=== PATIENT | male | born 1945 | race Caucasian/White ===

== ENCOUNTER 2019-12-15 12:50 | Outpatient (CLI) | payer MEDICARE, SELFPAY ==
[2019-12-15 13:47] LABS: Basophils % 0.2 %; Eosinophils # 0.2 10^3/uL (0.0-0.8); Hematocrit 43.6 % (42.0-52.0); Hemoglobin 14.4 g/dL (11.7-16.6); Lymphocytes # 2.6 10^3/uL (0.8-4.8); Lymphocytes % 31.6 %; Mean Corpuscular Hemoglobin 30.8 pg (28.0-34.0); Mean Corpuscular Volume 93.4 fL (80-94); Mean Platelet Volume 10.4 fL (7.4-10.4); Monocytes # 0.6 10^3/uL (0.2-0.9); Monocytes % 7.8 %; Neutrophils # 4.7 10^3/uL (1.8-7.7); Neutrophils % 57.5 %; Nucleated Red Blood Cells % 0 %; Platelet Count 160 10^3/cmm (130-400); Red Blood Count 4.67 10^6/uL (4.1-5.3); Red Cell Distribution Width 12.5 % (12.1-15.1); White Blood Count 8.2 10^3/uL (4.0-10.0)
[2019-12-15 14:10] LABS: Alanine Aminotransferase 22 U/L (0-41); Albumin Level 4.1 g/dL (3.5-5.2); Alkaline Phosphatase 80 IU/L (40-130); Anion Gap 16.8 (5-19); Aspartate Amino Transferase 18 U/L (0-40); Blood Urea Nitrogen 19 mg/dL (8-23); Calcium 10.1 mg/Dl (8.8-10.2); Carbon Dioxide 28 mmol/L (22-29); Chloride 100 mmol/L (98-107); Globulin 2.6 g/dL (1.3-4.6); Glucose 96 mg/dL (74-106); Potassium 3.8 mmol/L (3.5-5.1); Sodium 141 mmol/L (136-145); Total Bilirubin 0.3 mg/dL (0.15-1.2); Total Protein 6.7 g/dL (6.6-8.7)
[2019-12-15 14:44] LABS: Estmated Average Glucose 214; Hemoglobin A1C 9.1 % (4.0-6.0)
--- NOTE | 2019-12-15 20:13 | ONC FU_ITS ---
Dr. Valles Patient Follow-Up Note Patient: Andrae Montemayor Unit #: [id number]: 1945 Dicatated By: Kevan Valles M.D.Date of Visit:Dec 15, 2019 Onc Med Follow-up/Prog Note Chief Complaint: Grade III astrocytoma. 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 He was admitted to the hospital in July 2014 with an acute neurologic event, initially suspected to be a stroke. However, a noncontrast CT showed significant cerebral edema, and subsequent brain MRI showed a small enhancing lesion in the left superior frontal lobe subcortical white matter. It measured 7 mm x 10 mm x 6 mm, but it did have more extensive, ill defined cortical and subcortical edema and more diffuse intermediate increased T2 signal throughout the bilateral cerebral white matter, including involvement of the corpus colostrum body and medial cerebellum hemispheres. The appearance was consistent with tumoral extension or vasogenic edema. There was a 5 mm [id number] shift with diffuse cerebral sulci effacement. There was no associated infarction or hemorrhage. The appearance was suspicious for primary SAMPLE GR[employer]ER glioma or lymphoma. He underwent stereotactic brain biopsy on 08/17/14. Pathology was consistent with grade 3 astrocytoma. Patient and family had initially indicated that they were not interested in pursuing treatment, but he later was seen by Dr. Saenz, and he did opt to undergo treatment with radiation concurrently with temozolomide chemotherapy. Radiation was completed on 11/15/14 to a total dose of 4600 cGy. The temozolomide was stopped during the final week of treatment due to a drop in the platelet count. He otherwise tolerated the treatment very well. He had a restaging MRI in November 2014. It showed a significant decrease in the left superior frontal lobe enhancing lesions and the associated edema. There was also improvement in the left to right midline shift. There was still evidence of diffuse cerebral and cerebellar periventricular white matter high T2/FLAIR signal, possibly due to tumoral edema or chronic small ischemic changes. These appeared unchanged from the previous study. He then continued treatment with monthly cycles of temozolomide. As of May 2015 he had completed 6 cycles of treatment. He has since then been followed on observation. He was seen for a scheduled followup visit on 03/27/2016. At that time, his noted that he was getting more irritable and somewhat hyperactive. I was uncertain where those changes may have been related to dexamethasone as opposed to progression of the malignancy. He had repeat brain MRI on 04/18/2016. In compared to the previous study from May 2015 it did show slight enlargement of the left frontal lobe mass, measuring 12.2 mm x 13.0 mm x 9.2 mm compared to 7.2 mm x 6.6 mm x 9.8 mm in May 2015. There was evidence of decreased right temporal lobe white matter edema. Bilateral periventricular and bilateral frontal mike radiata and centrum semi-ovale white matter high T2/FLAIR signal abnormality appeared stable. He was not interested in pursuing options for further treatment at a tertiary facility. As such, I had recommended that he just continue on the dexamethasone 4 mg daily. His other medical illnesses include hypertension and type 2 diabetes. He had smoked in the past, but he quit more than 40 years ago. INTERIM HISTORY: He is seen for a scheduled visit. He has been feeling pretty good generally. He does have some fatigue, but he remains active, and he is able to do light work. He has good appetite. He has no fever or night sweats. He has some shortness of breath when he is tired. He had a cold about a week ago, his cough is getting better. He has not been having chest pain. He has no GI complaints. He has urinary frequency and urgency. He generally is controlling his bladder pretty well. He has no significant joint or bone pain. He says he gets a headache when he first wakes up in the morning, but it goes away when he drinks coffee. He has dizziness if he throws his head back. He has some numbness in both feet. He has no other focal neurologic symptoms. Medications: Dexamethasone 1 Tablet (of 4 mg) Oral at bedtime, GlipiZIDE 1 Tablet (of 10 mg) Oral b.i.d., Levemir 30 (100 Units/mL) Subcutaneous at bedtime, MetFORMIN HCl 1 Tablet (of 1000 mg) Oral b.i.d., Phenytoin Sodium Extended 3 Capsule (of 100 mg) Oral at bedtime Allergies: No Known Allergies. Review of Systems: Constitutional - He has some fatigue, but he is able to do light work. Appetite is good. He has no fever or night sweats. ECOG score is 1, ENMT - His sinus drainage has been better lately. No mouth sores. No sore throat or difficulty swallowing, Hematologic/Lymphatic - No abnormal bruising or bleeding, Respiratory - He has some shortness of breath when he is tired. He had a cold about a week ago. His cough now is getting better. No pleuritic pain or hemoptysis, Cardiovascular - No angina pain. No palpitations, Gastrointestinal - No nausea or vomiting. He has had just one recent episode of heartburn. No diarrhea or constipation. No blood in the stool or black stools, Genitourinary (M) - No dysuria or hematuria. He has urinary frequency and urgency, but he is generally controlling his bladder better, Musculoskeletal - No significant joint or bone pain, Integumentary - No skin complications, Neurologic - He has headache when he wakes up in the morning, but it goes away when he drinks coffee. He has dizziness if he throws his head back. He has some numbness in his feet. He has no other focal neurologic symptoms, Psychiatric - No anxiety or depression. No insomnia. Vital Signs: Performed on Dec 15, 2019 15:35 Height - 68.00 in Weight - 200.8 lbs BSA - 2.05 sq.m BMI - 30.53 (HIGH) Temperature - 97.8 F (LOW) Pulse - 75 /min Respiration - 24 /min BP - 148/80 mm(hg) (HIGH) O2 Sat - 96 % Pain - 0 Physical Examination: Constitutional - He looks pretty good generally, Eyes - He has a prosthetic left eye. There is no scleral icterus. Conjunctiva appears clear, ENMT - There are no lesions noted in the oral cavity, Hematologic/Lymphatic - No cervical, clavicular, or axillary adenopathy, Respiratory - Lungs show slightly coarse breath sounds bilaterally. There are scattered rales, more prominent on the left, Cardiovascular - Heart rhythm is regular. There is no murmur, gallop, or rub noted, Abdomen - Moderately distended. Liver and spleen are not enlarged. There is no abdominal mass or ascites noted and there is no inguinal adenopathy, Extremities - No edema, Neurologic - There are no focal neurologic deficits noted. Lab/Imaging: Test performed on Dec 15, 2019 13:28 Sodium 141 mmol/L Potassium 3.8 mmol/L Chloride 100 mmol/L CO2 28 mmol/L Anion Gap 16.8 BUN 19 mg/dL Creatinine 1.0 mg/dL Cr Clearance (Est) 82.2300 mL/min Glucose 96 mg/dL Calcium 10.1 mg/Dl Protein, Total 6.7 g/dL Albumin 4.1 g/dL Globulin 2.6 g/dL Bilirubin, Total 0.3 mg/dL ALT (SGPT) 22 U/L AST (SGOT) 18 U/L Hemoglobin A1C % 9.1 % WBC 8.2 10 3/uL RBC 4.67 10 6/uL HGB 14.4 g/dL HCT 43.6 % MCV 93.4 fL MCH 30.8 pg MCHC 33.0 g/dL RDW 12.5 % Platelet Count 160 10 3/cmm MPV 10.4 fL Neutrophils 4.7 10 3/uL Lymphocytes 2.6 10 3/uL Monocytes 0.6 10 3/uL Eosinophils 0.2 10 3/uL Basophils 0.0 10 3/uL Neutrophil % 57.5 % Lymphocyte % 31.6 % Monocyte % 7.8 % Eosinophil % 2.0 % Basophils % 0.2 % Impression: 1. 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 The tumor appeared small by MRI, but the surrounding changes were much more extensive, and it was felt that his tumor was locally advanced. 2. He underwent treatment with radiation concurrently with temozolomide chemotherapy. Radiation was completed on 11/15/14 to a total dose of 4600 cGy. Temozolomide was stopped during the final week of radiation due to a declining platelet count. He otherwise tolerated the treatment well. 3. He did show significant clinical improvement with the treatment, and restaging MRI in November 2014 showed evidence of some response. He then continued treatment with monthly cycles of temozolomide. As of May 2015 he had completed 6 cycles of treatment. He did show some decline in his platelet count during the last two cycles, but he tolerated the chemotherapy well otherwise. Repeat MRI on 06/23/2015 showed no evidence of disease progression. 4. During followup he has remained dependent on a low dosage of dexamethasone, but he has remained stable clinically. Repeat brain MRI on 04/18/2016 showed slight enlargement of the left frontal lobe intra-axial mass, presumably indicative of disease progression. Other findings were improved or stable. He had indicated that he was not interested in pursuing further treatment at a tertiary facility. As such, he has continued observation/symptomatic management. His other medical illnesses include: 5. Hypertension. 6. Hyperlipidemia. 7. Type II diabetes. 8. Hypothyroidism. During follow-up he has continued to do remarkably well on a low dose of dexamethasone. He has diabetes has not been controlled very well due to compliance issues, but his hemoglobin A1c has at least stabilized since we got him started on treatment with Levemir. His overall clinical status remains stable with no obvious progression of the astrocytoma. Plan: He will continue dexamethasone at 4 mg daily. His Levemir dosage will be increased to 30 units daily. I will see him again in 3 months, or sooner as needed. Signed By: Kevan Valles M.D. <<Signature on File>>
== END 2019-12-15 12:51 | disposition home or self-care (01) ==
LOC: ONCMED 12:57
PROVIDERS: PCP Nurse Practitioner; Visit Provider Internal Medicine Medical Oncology
DX: C71.1 Malignant neoplasm of frontal lobe (principal); E11.9 Type 2 diabetes mellitus without complications; I10 Essential (primary) hypertension; E78.5 Hyperlipidemia, unspecified; E03.9 Hypothyroidism, unspecified; Z79.899 Other long term (current) drug therapy; Z79.84 Long term (current) use of oral hypoglycemic drugs; Z79.52 Long term (current) use of systemic steroids; Z92.3 Personal history of irradiation; Z92.21 Personal history of antineoplastic chemotherapy
CPT/HCPCS: 36415; 80053; 83036; 85025; 99214

== ENCOUNTER 2020-03-16 14:30 | Outpatient (CLI) | payer MEDICARE, SELFPAY ==
[2020-03-16 17:02] LABS: Basophils % 0.4 %; Eosinophils # 0.1 10^3/uL (0.0-0.8); Eosinophils % 1.4 %; Hematocrit 44.4 % (42.0-52.0); Hemoglobin 14.5 g/dL (11.7-16.6); Lymphocytes # 2.4 10^3/uL (0.8-4.8); Lymphocytes % 28.6 %; Mean Corpuscular HGB Conc 32.7 g/dL (30.0-36.0); Mean Corpuscular Hemoglobin 30.7 pg (28.0-34.0); Mean Corpuscular Volume 93.9 fL (80-94); Mean Platelet Volume 11.7 fL (7.4-10.4); Monocytes # 0.7 10^3/uL (0.2-0.9); Monocytes % 8.7 %; Neutrophils # 5.1 10^3/uL (1.8-7.7); Neutrophils % 60.1 %; Nucleated Red Blood Cells % 0 %; Platelet Count 153 10^3/cmm (130-400); Red Blood Count 4.73 10^6/uL (4.1-5.3); Red Cell Distribution Width 12.9 % (12.1-15.1); White Blood Count 8.4 10^3/uL (4.0-10.0)
[2020-03-16 17:47] LABS: Estmated Average Glucose 220; Hemoglobin A1C 9.3 % (4.0-6.0)
== END 2020-03-16 14:31 | disposition home or self-care (01) ==
LOC: ONCMED 16:23
PROVIDERS: PCP Nurse Practitioner; Visit Provider Internal Medicine Medical Oncology
DX: C71.1 Malignant neoplasm of frontal lobe (principal); E11.9 Type 2 diabetes mellitus without complications
CPT/HCPCS: 36415; 83036; 85025

== ENCOUNTER 2020-03-17 06:51 | Outpatient (CLI) | payer MEDICARE, SELFPAY ==
--- NOTE | 2020-03-17 14:11 | ONC FU_ITS ---
Dr. Valles Patient Follow-Up Note Patient: Andrae Montemayor Unit #: [id number]: 1945 Dicatated By: Kevan Valles M.D.Date of Visit:Mar 17, 2020 Onc Med Follow-up/Prog Note Chief Complaint: Grade III astrocytoma. 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 He was admitted to the hospital in July 2014 with an acute neurologic event, initially suspected to be a stroke. However, a noncontrast CT showed significant cerebral edema, and subsequent brain MRI showed a small enhancing lesion in the left superior frontal lobe subcortical white matter. It measured 7 mm x 10 mm x 6 mm, but it did have more extensive, ill defined cortical and subcortical edema and more diffuse intermediate increased T2 signal throughout the bilateral cerebral white matter, including involvement of the corpus colostrum body and medial cerebellum hemispheres. The appearance was consistent with tumoral extension or vasogenic edema. There was a 5 mm [id number] shift with diffuse cerebral sulci effacement. There was no associated infarction or hemorrhage. The appearance was suspicious for primary [employer] glioma or lymphoma. He underwent stereotactic brain biopsy on 08/17/14. Pathology was consistent with grade 3 astrocytoma. Patient and family had initially indicated that they were not interested in pursuing treatment, but he later was seen by Dr. Saenz, and he did opt to undergo treatment with radiation concurrently with temozolomide chemotherapy. Radiation was completed on 11/15/14 to a total dose of 4600 cGy. The temozolomide was stopped during the final week of treatment due to a drop in the platelet count. He otherwise tolerated the treatment very well. He had a restaging MRI in November 2014. It showed a significant decrease in the left superior frontal lobe enhancing lesions and the associated edema. There was also improvement in the left to right midline shift. There was still evidence of diffuse cerebral and cerebellar periventricular white matter high T2/FLAIR signal, possibly due to tumoral edema or chronic small ischemic changes. These appeared unchanged from the previous study. He then continued treatment with monthly cycles of temozolomide. As of May 2015 he had completed 6 cycles of treatment. He has since then been followed on observation. He was seen for a scheduled followup visit on 03/27/2016. At that time, his noted that he was getting more irritable and somewhat hyperactive. I was uncertain where those changes may have been related to dexamethasone as opposed to progression of the malignancy. He had repeat brain MRI on 04/18/2016. In compared to the previous study from May 2015 it did show slight enlargement of the left frontal lobe mass, measuring 12.2 mm x 13.0 mm x 9.2 mm compared to 7.2 mm x 6.6 mm x 9.8 mm in May 2015. There was evidence of decreased right temporal lobe white matter edema. Bilateral periventricular and bilateral frontal mike radiata and centrum semi-ovale white matter high T2/FLAIR signal abnormality appeared stable. He was not interested in pursuing options for further treatment at a tertiary facility. As such, I had recommended that he just continue on the dexamethasone 4 mg daily. His other medical illnesses include hypertension and type 2 diabetes. He had smoked in the past, but he quit more than 40 years ago. INTERIM HISTORY: I had visited with him today by telephone. He says he is feeling all right. He is doing work around the house. He sometimes gets weak, but he recovers quickly if he just sits down and rests. ECOG score is 1. He has good appetite. He does not have fever or night sweats. He has not had sore mouth or throat. He has some shortness of breath with activity. He was having cough, but it is about gone now. He does not complain of chest pain. He has no GI complaints. Bladder function has been pretty good. He sometimes has pain in his legs which goes down to his toes. He gets lightheaded if he throws his head back. He also has some orthostatic dysequilibrium. He does not complain of headache, and he has no focal neurologic symptoms. Medications: Dexamethasone 1 Tablet (of 4 mg) Oral at bedtime, GlipiZIDE 1 Tablet (of 10 mg) Oral b.i.d., Levemir 30 (100 Units/mL) Subcutaneous at bedtime, MetFORMIN HCl 1 Tablet (of 1000 mg) Oral b.i.d., Phenytoin Sodium Extended 3 Capsule (of 100 mg) Oral at bedtime Allergies: No Known Allergies. Lab/Imaging: CBC shows hemoglobin 14.5 g, white blood cell count 8400, and platelet count 153,000. Hemoglobin A1c is stable at 9.3%. Impression: 1. 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 The tumor appeared small by MRI, but the surrounding changes were much more extensive, and it was felt that his tumor was locally advanced. 2. He underwent treatment with radiation concurrently with temozolomide chemotherapy. Radiation was completed on 11/15/14 to a total dose of 4600 cGy. Temozolomide was stopped during the final week of radiation due to a declining platelet count. He otherwise tolerated the treatment well. 3. He did show significant clinical improvement with the treatment, and restaging MRI in November 2014 showed evidence of some response. He then continued treatment with monthly cycles of temozolomide. As of May 2015 he had completed 6 cycles of treatment. He did show some decline in his platelet count during the last two cycles, but he tolerated the chemotherapy well otherwise. Repeat MRI on 06/23/2015 showed no evidence of disease progression. 4. During followup he has remained dependent on a low dosage of dexamethasone, but he has remained stable clinically. Repeat brain MRI on 04/18/2016 showed slight enlargement of the left frontal lobe intra-axial mass, presumably indicative of disease progression. Other findings were improved or stable. He had indicated that he was not interested in pursuing further treatment at a tertiary facility. As such, he has continued observation/symptomatic management. His other medical illnesses include: 5. Hypertension. 6. Hyperlipidemia. 7. Type II diabetes. 8. Hypothyroidism. During follow-up he has continued to do remarkably well on a low dose of dexamethasone. He has diabetes has not been controlled very well due to compliance issues, but his hemoglobin A1c has at least stabilized since he started on treatment with Levemir. His overall clinical status appears to be stable with no obvious progression of the astrocytoma. Plan: He will continue dexamethasone at 4 mg daily. He will continue Levemir 30 units daily. I will see him again in 3 months, or sooner as needed. Signed By: Kevan Valles M.D. <<Signature on File>>
== END 2020-03-17 06:52 | disposition home or self-care (01) ==
LOC: ONCMED 06:55
PROVIDERS: PCP Nurse Practitioner; Visit Provider Internal Medicine Medical Oncology
DX: C71.1 Malignant neoplasm of frontal lobe (principal); E11.8 Type 2 diabetes mellitus with unspecified complications; I10 Essential (primary) hypertension; E78.5 Hyperlipidemia, unspecified; E03.9 Hypothyroidism, unspecified; Z79.4 Long term (current) use of insulin; Z79.52 Long term (current) use of systemic steroids; Z91.19 Patient's noncompliance with other medical treatment and regimen

== ENCOUNTER 2020-07-05 11:35 | Outpatient (CLI) | payer MEDICARE, SELFPAY ==
[2020-07-05 12:15] LABS: Basophils % 0.1 %; Eosinophils # 0.1 10^3/uL (0.0-0.8); Eosinophils % 1.5 %; Hematocrit 40.2 % (42.0-52.0); Hemoglobin 12.9 g/dL (11.7-16.6); Lymphocytes # 2.5 10^3/uL (0.8-4.8); Lymphocytes % 31.5 %; Mean Corpuscular HGB Conc 32.1 g/dL (30.0-36.0); Mean Corpuscular Hemoglobin 30.3 pg (28.0-34.0); Mean Corpuscular Volume 94.4 fL (80-94); Monocytes # 0.5 10^3/uL (0.2-0.9); Monocytes % 6.9 %; Neutrophils # 4.62 10^3/uL (1.8-7.7); Neutrophils % 59.5 %; Nucleated Red Blood Cells % 0 %; Platelet Count 167 10^3/cmm (130-400); Red Blood Count 4.26 10^6/uL (4.1-5.3); Red Cell Distribution Width 13.1 % (12.1-15.1); White Blood Count 7.8 10^3/uL (4.0-10.0)
[2020-07-05 12:42] LABS: Alanine Aminotransferase 18 U/L (0-41); Albumin Level 4.2 g/dL (3.5-5.2); Alkaline Phosphatase 90 IU/L (40-130); Anion Gap 14.8 (5-19); Aspartate Amino Transferase 17 U/L (0-40); Blood Urea Nitrogen 12 mg/dL (8-23); Calcium 9.1 mg/dL (8.5-10.5); Carbon Dioxide 24 mmol/L (22-29); Chloride 103 mmol/L (98-107); Globulin 2.4 g/dL (1.3-4.6); Glucose 320 mg/dL (65-115); Osmolality Calculated 294 mOsm/kg (285-295); Potassium 3.8 mmol/L (3.5-5.1); Sodium 138 mmol/L (136-145); Total Bilirubin 0.2 mg/dL (0.15-1.2); Total Protein 6.6 g/dL (6.6-8.7)
[2020-07-05 14:09] LABS: Estmated Average Glucose 217; Hemoglobin A1C 9.2 % (4.0-6.0)
--- NOTE | 2020-07-08 14:22 | ONC FU_ITS ---
Dr. Valles Patient Follow-Up Note Patient: Andrae Montemayor Unit #: [id number]: 1945 Dicatated By: Kevan Valles M.D.Date of Visit:Jul 05, 2020 Onc Med Follow-up/Prog Note Chief Complaint: Grade III astrocytoma. 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 He was admitted to the hospital in July 2014 with an acute neurologic event, initially suspected to be a stroke. However, a noncontrast CT showed significant cerebral edema, and subsequent brain MRI showed a small enhancing lesion in the left superior frontal lobe subcortical white matter. It measured 7 mm x 10 mm x 6 mm, but it did have more extensive, ill defined cortical and subcortical edema and more diffuse intermediate increased T2 signal throughout the bilateral cerebral white matter, including involvement of the corpus colostrum body and medial cerebellum hemispheres. The appearance was consistent with tumoral extension or vasogenic edema. There was a 5 mm [id number] shift with diffuse cerebral sulci effacement. There was no associated infarction or hemorrhage. The appearance was suspicious for primary QUANTITATIVE STRATEGY ANALYST glioma or lymphoma. He underwent stereotactic brain biopsy on 08/17/14. Pathology was consistent with grade 3 astrocytoma. Patient and family had initially indicated that they were not interested in pursuing treatment, but he later was seen by Dr. Saenz, and he did opt to undergo treatment with radiation concurrently with temozolomide chemotherapy. Radiation was completed on 11/15/14 to a total dose of 4600 cGy. The temozolomide was stopped during the final week of treatment due to a drop in the platelet count. He otherwise tolerated the treatment very well. He had a restaging MRI in November 2014. It showed a significant decrease in the left superior frontal lobe enhancing lesions and the associated edema. There was also improvement in the left to right midline shift. There was still evidence of diffuse cerebral and cerebellar periventricular white matter high T2/FLAIR signal, possibly due to tumoral edema or chronic small ischemic changes. These appeared unchanged from the previous study. He then continued treatment with monthly cycles of temozolomide. As of May 2015 he had completed 6 cycles of treatment. He has since then been followed on observation. He was seen for a scheduled followup visit on 03/27/2016. At that time, his noted that he was getting more irritable and somewhat hyperactive. I was uncertain where those changes may have been related to dexamethasone as opposed to progression of the malignancy. He had repeat brain MRI on 04/18/2016. In compared to the previous study from May 2015 it did show slight enlargement of the left frontal lobe mass, measuring 12.2 mm x 13.0 mm x 9.2 mm compared to 7.2 mm x 6.6 mm x 9.8 mm in May 2015. There was evidence of decreased right temporal lobe white matter edema. Bilateral periventricular and bilateral frontal mike radiata and centrum semi-ovale white matter high T2/FLAIR signal abnormality appeared stable. He was not interested in pursuing options for further treatment at a tertiary facility. As such, I had recommended that he just continue on the dexamethasone 4 mg daily. His other medical illnesses include hypertension and type 2 diabetes. He had smoked in the past, but he quit more than 40 years ago. INTERIM HISTORY: He is seen for a scheduled visit. He says he is feeling all right. His energy is about the same. He is doing light work. ECOG score is 1. He has good appetite. He has no fever or night sweats. He has occasional cough. He does not complain of shortness of breath or chest pain. He has no GI complaints. He says his bladder function comes and goes. He had recently woken up with pretty significant back pain, but it resolved after applying some type of topical preparation. He has no other joint or bone pain. He does have some numbness/tingling in his feet. He does not complain of headache, and he has no other focal neurologic symptoms. Medications: Dexamethasone 1 Tablet (of 4 mg) Oral at bedtime, GlipiZIDE 1 Tablet (of 10 mg) Oral b.i.d., Levemir 335 (100 Units/mL) Subcutaneous at bedtime, MetFORMIN HCl 1 Tablet (of 1000 mg) Oral b.i.d., Phenytoin Sodium Extended 3 Capsule (of 100 mg) Oral at bedtime Allergies: No Known Allergies. Review of Systems: Constitutional - His energy is about the same. His appetite is good and weight is stable. No fever, night sweats, or hot flashes. ECOG score is 1, ENMT - No sinus congestion/drainage. No mouth sores. No sore throat or difficulty swallowing, Hematologic/Lymphatic - He has a lot of brusing on his arms, Respiratory - No shortness of breath. He has an occasional cough. No pleuritic pain or hemoptysis, Cardiovascular - No angina pain. No palpitations, Gastrointestinal - No nausea or vomiting. No heartburn or acid reflux. No diarrhea or constipation. No blood in the stool or black stools, Genitourinary (M) - No dysuria or hematuria. He sometimes has urgency and incontinence, Musculoskeletal - He had a episode of back pain, severe enough that woke him up. It resolved with some type of topical therapy. He has no other joint or bone pain, Integumentary - No skin rash, Neurologic - No headache or dizziness. He has numbness/tingling in his feet. No other focal neurologic symptoms, Psychiatric - No anxiety or depression. No insomnia. Vital Signs: Performed on Jul 05, 2020 14:12 Height - 68.00 in Weight - 200.8 lbs BSA - 2.05 sq.m BMI - 30.53 (HIGH) Temperature - 98.8 F Pulse - 71 /min Respiration - 24 /min BP - 154/65 mm(hg) (HIGH) O2 Sat - 94 % (LOW) Pain - 0 Physical Examination: Constitutional - He looks pretty good generally, Eyes - He has a prosthetic left eye. He is n not icteric. Conjunctiva appears clear, ENMT - There are no lesions noted in the oral cavity, Hematologic/Lymphatic - No cervical, clavicular, or axillary adenopathy, Respiratory - Lungs sound clear with slightly diminished air movement bilaterally, Cardiovascular - Heart rhythm is regular. There is no murmur, gallop, or rub noted, Abdomen - Moderately distended. Liver and spleen are not enlarged. There is no abdominal mass or ascites noted and there is no inguinal adenopathy, Extremities - No edema. There is extensive purpura on both arms, Neurologic - There are no focal neurologic deficits noted. Lab/Imaging: Test performed on Jul 05, 2020 11:44 Sodium 138 mmol/L Potassium 3.8 mmol/L Chloride 103 mmol/L CO2 24 mmol/L Anion Gap 14.8 BUN 12 mg/dL Creatinine 1.2 mg/dL Cr Clearance (Est) 67.4700 mL/min Glucose 320 mg/dL Calcium 9.1 mg/dL Protein, Total 6.6 g/dL Albumin 4.2 g/dL Globulin 2.4 g/dL Bilirubin, Total 0.2 mg/dL ALT (SGPT) 18 U/L AST (SGOT) 17 U/L Alkaline Phosphatase 90 IU/L Hemoglobin A1C % 9.2 % WBC 7.8 10 3/uL RBC 4.26 10 6/uL HGB 12.9 g/dL HCT 40.2 % MCV 94.4 fL MCH 30.3 pg MCHC 32.1 g/dL RDW 13.1 % Platelet Count 167 10 3/cmm MPV 11.0 fL Neutrophils 4.62 10 3/uL Lymphocytes 2.5 10 3/uL Monocytes 0.5 10 3/uL Eosinophils 0.1 10 3/uL Basophils 0.0 10 3/uL Neutrophil % 59.5 % Lymphocyte % 31.5 % Monocyte % 6.9 % Eosinophil % 1.5 % Basophils % 0.1 % NRBC % 0 % Impression: 1. 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 The tumor appeared small by MRI, but the surrounding changes were much more extensive, and it was felt that his tumor was locally advanced. 2. He underwent treatment with radiation concurrently with temozolomide chemotherapy. Radiation was completed on 11/15/14 to a total dose of 4600 cGy. Temozolomide was stopped during the final week of radiation due to a declining platelet count. He otherwise tolerated the treatment well. 3. He did show significant clinical improvement with the treatment, and restaging MRI in November 2014 showed evidence of some response. He then continued treatment with monthly cycles of temozolomide. As of May 2015 he had completed 6 cycles of treatment. He did show some decline in his platelet count during the last two cycles, but he tolerated the chemotherapy well otherwise. Repeat MRI on 06/23/2015 showed no evidence of disease progression. 4. During followup he has remained dependent on a low dosage of dexamethasone, but he has remained stable clinically. Repeat brain MRI on 04/18/2016 showed slight enlargement of the left frontal lobe intra-axial mass, presumably indicative of disease progression. Other findings were improved or stable. He had indicated that he was not interested in pursuing further treatment at a tertiary facility. As such, he has continued observation/symptomatic management. His other medical illnesses include: 5. Hypertension. 6. Hyperlipidemia. 7. Type II diabetes. 8. Hypothyroidism. During follow-up his diabetes had not been controlled very well due to compliance issues, but his hemoglobin A1c had stabilized since he started on treatment with Levemir. At this point it remains elevated at just over 9%. His overall clinical status, though, remained stable. Overall, he has done remarkably well following the radiation, though he does remain steroid-dependent. Plan: He will continue dexamethasone at 4 mg daily. He will increase Levemir to 35 units daily. I will see him again in 3 months. Signed By: Kevan Valles M.D. <<Signature on File>>
== END 2020-07-05 11:36 | disposition home or self-care (01) ==
LOC: ONCMED 11:35
PROVIDERS: PCP Nurse Practitioner; Visit Provider Internal Medicine Medical Oncology
DX: C71.1 Malignant neoplasm of frontal lobe (principal); E11.9 Type 2 diabetes mellitus without complications; I10 Essential (primary) hypertension; E78.5 Hyperlipidemia, unspecified; E03.9 Hypothyroidism, unspecified; Z79.4 Long term (current) use of insulin; Z79.52 Long term (current) use of systemic steroids
CPT/HCPCS: 80053; 83036; 85025; 99214

== ENCOUNTER 2020-10-11 08:50 | Outpatient (CLI) | payer MEDICARE, SELFPAY ==
[2020-10-11 09:48] LABS: Basophils % 0.4 %; Eosinophils # 0.2 10^3/uL (0.0-0.8); Hematocrit 42.7 % (42.0-52.0); Hemoglobin 13.9 g/dL (11.7-16.6); Lymphocytes # 2.1 10^3/uL (0.8-4.8); Lymphocytes % 26.9 %; Mean Corpuscular HGB Conc 32.6 g/dL (30.0-36.0); Mean Corpuscular Hemoglobin 30.3 pg (28.0-34.0); Mean Corpuscular Volume 93.2 fL (80-94); Mean Platelet Volume 10.1 fL (7.4-10.4); Monocytes # 0.6 10^3/uL (0.2-0.9); Monocytes % 7.5 %; Neutrophils # 4.77 10^3/uL (1.8-7.7); Neutrophils % 62.7 %; Nucleated Red Blood Cells % 0 %; Platelet Count 192 10^3/cmm (130-400); Red Blood Count 4.58 10^6/uL (4.1-5.3); Red Cell Distribution Width 12.8 % (12.1-15.1); White Blood Count 7.6 10^3/uL (4.0-10.0)
[2020-10-11 10:01] LABS: Alanine Aminotransferase 32 U/L (0-41); Albumin Level 4.3 g/dL (3.5-5.2); Alkaline Phosphatase 77 IU/L (40-130); Aspartate Amino Transferase 24 U/L (0-40); Blood Urea Nitrogen 14 mg/dL (8-23); Calcium 9.4 mg/dL (8.5-10.5); Carbon Dioxide 26 mmol/L (22-29); Chloride 104 mmol/L (98-107); Globulin 2.6 g/dL (1.3-4.6); Glucose 71 mg/dL (65-115); Osmolality Calculated 291 mOsm/kg (285-295); Sodium 141 mmol/L (136-145); Total Bilirubin 0.2 mg/dL (0.15-1.2); Total Protein 6.9 g/dL (6.6-8.7)
[2020-10-11 10:36] LABS: Estmated Average Glucose 186; Hemoglobin A1C 8.1 % (4.0-6.0)
--- NOTE | 2020-10-15 10:52 | ONC FU_ITS ---
Dr. Valles Patient Follow-Up Note Patient: Andrae Montemayor Unit #: [id number]: 1945 Dicatated By: Kevan Valles M.D.Date of Visit:Oct 11, 2020 Onc Med Follow-up/Prog Note Chief Complaint: Grade III astrocytoma. 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 He was admitted to the hospital in July 2014 with an acute neurologic event, initially suspected to be a stroke. However, a noncontrast CT showed significant cerebral edema, and subsequent brain MRI showed a small enhancing lesion in the left superior frontal lobe subcortical white matter. It measured 7 mm x 10 mm x 6 mm, but it did have more extensive, ill defined cortical and subcortical edema and more diffuse intermediate increased T2 signal throughout the bilateral cerebral white matter, including involvement of the corpus colostrum body and medial cerebellum hemispheres. The appearance was consistent with tumoral extension or vasogenic edema. There was a 5 mm [id number] shift with diffuse cerebral sulci effacement. There was no associated infarction or hemorrhage. 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 He underwent stereotactic brain biopsy on 08/17/14. Pathology was consistent with grade 3 astrocytoma. Patient and family had initially indicated that they were not interested in pursuing treatment, but he later was seen by Dr. Saenz, and he did opt to undergo treatment with radiation concurrently with temozolomide chemotherapy. Radiation was completed on 11/15/14 to a total dose of 4600 cGy. The temozolomide was stopped during the final week of treatment due to a drop in the platelet count. He otherwise tolerated the treatment very well. He had a restaging MRI in November 2014. It showed a significant decrease in the left superior frontal lobe enhancing lesions and the associated edema. There was also improvement in the left to right midline shift. There was still evidence of diffuse cerebral and cerebellar periventricular white matter high T2/FLAIR signal, possibly due to tumoral edema or chronic small ischemic changes. These appeared unchanged from the previous study. He then continued treatment with monthly cycles of temozolomide. As of May 2015 he had completed 6 cycles of treatment. He has since then been followed on observation. He was seen for a scheduled followup visit on 03/27/2016. At that time, his noted that he was getting more irritable and somewhat hyperactive. I was uncertain where those changes may have been related to dexamethasone as opposed to progression of the malignancy. He had repeat brain MRI on 04/18/2016. In compared to the previous study from May 2015 it did show slight enlargement of the left frontal lobe mass, measuring 12.2 mm x 13.0 mm x 9.2 mm compared to 7.2 mm x 6.6 mm x 9.8 mm in May 2015. There was evidence of decreased right temporal lobe white matter edema. Bilateral periventricular and bilateral frontal mike radiata and centrum semi-ovale white matter high T2/FLAIR signal abnormality appeared stable. He was not interested in pursuing options for further treatment at a tertiary facility. As such, I had recommended that he just continue on the dexamethasone 4 mg daily. His other medical illnesses include hypertension and type 2 diabetes. He had smoked in the past, but he quit more than 40 years ago. INTERIM HISTORY: He is seen for a scheduled visit. He has been feeling okay. His energy is pretty good. He stays active, but he typically has to rest after 10 to 15 minutes. ECOG score is 1. His appetite is good. He has no fever or night sweats. He has just occasional cough. He does not complain of shortness of breath or chest pain. He has no GI complaints. Bladder function lately has been okay. He sometimes has soreness in his joints. He has just occasional headache. He does tend to have dysequilibrium when he first gets up. He has a little numbness in his feet. He has no other focal neurologic symptoms. Medications: Dexamethasone 1 Tablet (of 4 mg) Oral at bedtime, GlipiZIDE 1 Tablet (of 10 mg) Oral b.i.d., Levemir 335 (100 Units/mL) Subcutaneous at bedtime, MetFORMIN HCl 1 Tablet (of 1000 mg) Oral b.i.d., Phenytoin Sodium Extended 3 Capsule (of 100 mg) Oral at bedtime Allergies: No Known Allergies. Review of Systems: Constitutional - He has pretty good energy. e is able to do light work, though he typically has to rest after 10 to 15 minutes of activity. Appetite is good. He has not had fever or night sweats. ECOG score is 1, ENMT - No sinus congestion/drainage. No mouth sores. No sore throat or difficulty swallowing, Hematologic/Lymphatic - He bruises easily, Respiratory - No shortness of breath. He has just occasional cough. No pleuritic pain or hemoptysis, Cardiovascular - No angina pain. No palpitations, Gastrointestinal - No nausea or vomiting. No heartburn or acid reflux. No diarrhea or constipation. No blood in the stool or black stools, Genitourinary (M) - No dysuria or hematuria. No urgency or incontinence, Musculoskeletal - He sometimes has sore joints, Integumentary - No skin rash, Neurologic - He has just occasional headache. He does tend to have dysequilibrium when he first gets up. He has a little numbness in his feet. No other focal neurologic symptoms, Psychiatric - No anxiety or depression. No insomnia. Vital Signs: Performed on Oct 11, 2020 12:30 Height - 68.00 in Weight - 197.2 lbs (LOW) BSA - 2.03 sq.m BMI - 29.98 Temperature - 98.2 F (LOW) Pulse - 63 /min Respiration - 20 /min BP - 168/82 mm(hg) (HIGH) O2 Sat - 97 % Pain - 0 Physical Examination: Constitutional - He looks pretty good generally, Eyes - He has a prosthetic left eye. He is not icteric. Conjunctiva appears clear, ENMT - No lesions noted in the oral cavity, Hematologic/Lymphatic - No cervical, clavicular, or axillary adenopathy, Respiratory - Lungs sound clear with some decrease in air movement bilaterally, Cardiovascular - Heart rhythm is regular. There is no murmur, gallop, or rub noted, Abdomen - Moderately distended. Liver and spleen are not enlarged. There is no abdominal mass or ascites noted and there is no inguinal adenopathy, Extremities - No edema. He has extensive purpura on both arms, Neurologic - There are no focal neurologic deficits noted. Lab/Imaging: Test performed on Oct 11, 2020 09:40 Sodium 141 mmol/L Potassium 4.0 mmol/L Chloride 104 mmol/L Est Avg Glucose (eAG) 186 mg/dL CO2 26 mmol/L Anion Gap 15.0 BUN 14 mg/dL Creatinine 0.9 mg/dL Cr Clearance (Est) 88.35 mL/min Glucose 71 mg/dL Osmolality - Calculated 291 mOsm/kg Calcium 9.4 mg/dL Protein, Total 6.9 g/dL Albumin 4.3 g/dL Globulin 2.6 g/dL Bilirubin, Total 0.2 mg/dL ALT (SGPT) 32 U/L AST (SGOT) 24 U/L Alkaline Phosphatase 77 IU/L Hemoglobin A1C % 8.1 % WBC 7.6 10 3/uL RBC 4.58 10 6/uL HGB 13.9 g/dL HCT 42.7 % MCV 93.2 fL MCH 30.3 pg MCHC 32.6 g/dL RDW 12.8 % Platelet Count 192 10 3/cmm MPV 10.1 fL Neutrophils 4.77 10 3/uL Lymphocytes 2.1 10 3/uL Monocytes 0.6 10 3/uL Eosinophils 0.2 10 3/uL Basophils 0.0 10 3/uL Neutrophil % 62.7 % Lymphocyte % 26.9 % Monocyte % 7.5 % Eosinophil % 2.0 % Basophils % 0.4 % NRBC % 0 % Impression: 1. 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 The tumor appeared small by MRI, but the surrounding changes were much more extensive, and it was felt that his tumor was locally advanced. 2. He underwent treatment with radiation concurrently with temozolomide chemotherapy. Radiation was completed on 11/15/14 to a total dose of 4600 cGy. Temozolomide was stopped during the final week of radiation due to a declining platelet count. He otherwise tolerated the treatment well. 3. He did show significant clinical improvement with the treatment, and restaging MRI in November 2014 showed evidence of some response. He then continued treatment with monthly cycles of temozolomide. As of May 2015 he had completed 6 cycles of treatment. He did show some decline in his platelet count during the last two cycles, but he tolerated the chemotherapy well otherwise. Repeat MRI on 06/23/2015 showed no evidence of disease progression. 4. During followup he has remained dependent on a low dosage of dexamethasone, but he has remained stable clinically. Repeat brain MRI on 04/18/2016 showed slight enlargement of the left frontal lobe intra-axial mass, presumably indicative of disease progression. Other findings were improved or stable. He had indicated that he was not interested in pursuing further treatment at a tertiary facility. As such, he has continued observation/symptomatic management. His other medical illnesses include: 5. Hypertension. 6. Hyperlipidemia. 7. Type II diabetes. 8. Hypothyroidism. During follow-up his diabetes had not been controlled very well due to compliance issues, but his hemoglobin A1c has stabilized since on treatment with Levemir. His overall clinical status has remained stable on chronic steroid therapy with dexamethasone 4 mg daily. Plan: He will continue dexamethasone at 4 mg daily. He will continue Levemir at 35 units daily. I will see him again in 3 months. Signed By: Kevan Valles M.D. <<Signature on File>>
== END 2020-10-11 08:51 | disposition home or self-care (01) ==
LOC: ONCMED 08:55
PROVIDERS: Visit Provider Internal Medicine Medical Oncology
DX: C71.1 Malignant neoplasm of frontal lobe (principal); I10 Essential (primary) hypertension; E78.5 Hyperlipidemia, unspecified; E11.9 Type 2 diabetes mellitus without complications; E03.9 Hypothyroidism, unspecified; Z79.52 Long term (current) use of systemic steroids; Z79.4 Long term (current) use of insulin; Z92.3 Personal history of irradiation; Z92.21 Personal history of antineoplastic chemotherapy
CPT/HCPCS: 36415; 80053; 83036; 85025; 99214

== ENCOUNTER 2021-01-31 06:30 | Outpatient (CLI) | payer MEDICARE, SELFPAY ==
[2021-01-31 07:14] LABS: Basophils % 0.3 %; Eosinophils # 0.2 10^3/uL (0.0-0.8); Eosinophils % 1.8 %; Hemoglobin 14.6 g/dL (11.7-16.6); Lymphocytes # 2.2 10^3/uL (0.8-4.8); Lymphocytes % 24.6 %; Mean Corpuscular HGB Conc 32.4 g/dL (30.0-36.0); Mean Corpuscular Hemoglobin 30.4 pg (28.0-34.0); Mean Corpuscular Volume 93.8 fL (80-94); Mean Platelet Volume 10.3 fL (7.4-10.4); Monocytes # 0.7 10^3/uL (0.2-0.9); Monocytes % 8.2 %; Neutrophils # 5.71 10^3/uL (1.8-7.7); Neutrophils % 64.2 %; Nucleated Red Blood Cells % 0 %; Platelet Count 215 10^3/cmm (130-400); Red Cell Distribution Width 12.5 % (12.1-15.1); White Blood Count 8.9 10^3/uL (4.0-10.0)
[2021-01-31 07:18] LABS: Alanine Aminotransferase 22 U/L (0-41); Alkaline Phosphatase 85 IU/L (40-130); Aspartate Amino Transferase 16 U/L (0-40); Blood Urea Nitrogen 14 mg/dL (8-23); Calcium 9.6 mg/dL (8.5-10.5); Carbon Dioxide 27 mmol/L (22-29); Chloride 101 mmol/L (98-107); Globulin 3.4 g/dL (1.3-4.6); Glucose 70 mg/dL (65-115); Osmolality Calculated 285 mOsm/kg (285-295); Sodium 138 mmol/L (136-145); Total Bilirubin 0.3 mg/dL (0.15-1.2); Total Protein 7.4 g/dL (6.6-8.7)
[2021-01-31 09:35] LABS: Estmated Average Glucose 212
--- NOTE | 2021-02-04 13:21 | ONC FU_ITS ---
Dr. Valles Patient Follow-Up Note Patient: Andrae Montemayor Unit #: [id number]: 1945 Dicatated By: Kevan Valles M.D.Date of Visit:Jan 31, 2021 Onc Med Follow-up/Prog Note Chief Complaint: Grade III astrocytoma. 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 He was admitted to the hospital in July 2014 with an acute neurologic event, initially suspected to be a stroke. However, a noncontrast CT showed significant cerebral edema, and subsequent brain MRI showed a small enhancing lesion in the left superior frontal lobe subcortical white matter. It measured 7 mm x 10 mm x 6 mm, but it did have more extensive, ill defined cortical and subcortical edema and more diffuse intermediate increased T2 signal throughout the bilateral cerebral white matter, including involvement of the corpus colostrum body and medial cerebellum hemispheres. The appearance was consistent with tumoral extension or vasogenic edema. There was a 5 mm [id number] shift with diffuse cerebral sulci effacement. There was no associated infarction or hemorrhage. The appearance was suspicious for primary [employer] glioma or lymphoma. He underwent stereotactic brain biopsy on 08/17/14. Pathology was consistent with grade 3 astrocytoma. Patient and family had initially indicated that they were not interested in pursuing treatment, but he later was seen by Dr. Seanz, and he did opt to undergo treatment with radiation concurrently with temozolomide chemotherapy. Radiation was completed on 11/15/14 to a total dose of 4600 cGy. The temozolomide was stopped during the final week of treatment due to a drop in the platelet count. He otherwise tolerated the treatment very well. He had a restaging MRI in November 2014. It showed a significant decrease in the left superior frontal lobe enhancing lesions and the associated edema. There was also improvement in the left to right midline shift. There was still evidence of diffuse cerebral and cerebellar periventricular white matter high T2/FLAIR signal, possibly due to tumoral edema or chronic small ischemic changes. These appeared unchanged from the previous study. He then continued treatment with monthly cycles of temozolomide. As of May 2015 he had completed 6 cycles of treatment. He has since then been followed on observation. He was seen for a scheduled followup visit on 03/27/2016. At that time, his noted that he was getting more irritable and somewhat hyperactive. I was uncertain where those changes may have been related to dexamethasone as opposed to progression of the malignancy. He had repeat brain MRI on 04/18/2016. In compared to the previous study from May 2015 it did show slight enlargement of the left frontal lobe mass, measuring 12.2 mm x 13.0 mm x 9.2 mm compared to 7.2 mm x 6.6 mm x 9.8 mm in May 2015. There was evidence of decreased right temporal lobe white matter edema. Bilateral periventricular and bilateral frontal mike radiata and centrum semi-ovale white matter high T2/FLAIR signal abnormality appeared stable. He was not interested in pursuing options for further treatment at a tertiary facility. As such, I had recommended that he just continue on the dexamethasone 4 mg daily. His other medical illnesses include hypertension, hyperlipidemia, type 2 diabetes, and hypothyroidism. He had smoked in the past, but he quit more than 40 years ago. INTERIM HISTORY: He is seen for a scheduled visit. He has been feeling pretty good generally. He does not have a whole lot of energy and he does tend to give out, but he is still pretty active and doing light work as long as he stops to rest. ECOG score is 1. He has good appetite. He has no fever or night sweats. He has just occasional cough. He does not complain of shortness of breath or chest pain. He reports having occasional abdominal cramping. He has no other GI or complaints. He has some back pain, which is chronic. He manages it with topical medication. He sometimes has dizziness. He does not complain of headache and he has no focal neurologic symptoms. Medications: Dexamethasone 1 Tablet (of 4 mg) Oral at bedtime, GlipiZIDE 1 Tablet (of 10 mg) Oral b.i.d., Levemir 335 (100 Units/mL) Subcutaneous at bedtime, MetFORMIN HCl 1 Tablet (of 1000 mg) Oral b.i.d., Phenytoin Sodium Extended 3 Capsule (of 100 mg) Oral at bedtime Allergies: No Known Allergies. Vital Signs: Performed on Jan 31, 2021 09:44 Height - 68.00 in Weight - 198.2 lbs (HIGH) BSA - 2.04 sq.m BMI - 30.14 (HIGH) Temperature - 97.8 F (LOW) Pulse - 81 /min Respiration - 18 /min BP - 179/71 mm(hg) (HIGH) O2 Sat - 95 % (LOW) Pain - 0 Fatigue - 0 Physical Examination: Constitutional - He looks pretty good generally, Eyes - He has a prosthetic left eye. He is not icteric. Conjunctiva appears clear, ENMT - No lesions noted in the oral cavity, Hematologic/Lymphatic - No cervical, clavicular, or axillary adenopathy, Respiratory - Lungs show slightly coarse breath sounds with some decrease in air movement bilaterally, Cardiovascular - Heart rhythm is regular. There is no murmur, gallop, or rub noted, Abdomen - Moderately distended and tympanic. Liver and spleen are not enlarged. There is no abdominal mass or ascites noted and there is no inguinal adenopathy, Extremities - No edema. There are purpuric lesions on both arms, Neurologic - There are no focal neurologic deficits noted. Lab/Imaging: Test performed on Jan 31, 2021 06:40 Sodium 138 mmol/L Potassium 4.0 mmol/L Chloride 101 mmol/L Est Avg Glucose (eAG) 212 mg/dL CO2 27 mmol/L Anion Gap 14.0 BUN 14 mg/dL Creatinine 0.9 mg/dL Cr Clearance (Est) 88.79 mL/min Glucose 70 mg/dL Osmolality - Calculated 285 mOsm/kg Calcium 9.6 mg/dL Protein, Total 7.4 g/dL Albumin 4.0 g/dL Globulin 3.4 g/dL Bilirubin, Total 0.3 mg/dL ALT (SGPT) 22 U/L AST (SGOT) 16 U/L Alkaline Phosphatase 85 IU/L Hemoglobin A1C % 9.0 % WBC 8.9 10 3/uL RBC 4.80 10 6/uL HGB 14.6 g/dL HCT 45.0 % MCV 93.8 fL MCH 30.4 pg MCHC 32.4 g/dL RDW 12.5 % Platelet Count 215 10 3/cmm MPV 10.3 fL Neutrophils 5.71 10 3/uL Lymphocytes 2.2 10 3/uL Monocytes 0.7 10 3/uL Eosinophils 0.2 10 3/uL Basophils 0.0 10 3/uL Neutrophil % 64.2 % Lymphocyte % 24.6 % Monocyte % 8.2 % Eosinophil % 1.8 % Basophils % 0.3 % NRBC % 0 % Problem List: 1. Grade III astrocytoma involving the left frontal lobe of the brain. The tumor appeared small by MRI, but the surrounding changes were much more extensive, and it was felt that his tumor was locally advanced. 2. Hypertension. 3. Hyperlipidemia. 4. Type II diabetes. 5. Hypothyroidism. Problems Addressed with this Encounter and Plan: 1. 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 The tumor appeared small by MRI, but the surrounding changes were much more extensive, and it was felt that his tumor was locally advanced. He underwent treatment with radiation concurrently with temozolomide chemotherapy. Radiation was completed on 11/15/14 to a total dose of 4600 cGy. Temozolomide was stopped during the final week of radiation due to a declining platelet count. He otherwise tolerated the treatment well. He had clinical improvement with the treatment, and restaging MRI in November 2014 showed evidence of some response. He then continued treatment with monthly cycles of temozolomide. As of May 2015 he had completed 6 cycles of treatment. He did show some decline in his platelet count during the last two cycles, but he tolerated the chemotherapy well otherwise. Repeat MRI on 06/23/2015 showed no evidence of disease progression. During followup he remained dependent on a low dosage of dexamethasone, but he has remained stable clinically. Repeat brain MRI on 04/18/2016 showed slight enlargement of the left frontal lobe intra-axial mass, presumably indicative of disease progression. Other findings were improved or stable. He had indicated that he was not interested in pursuing further treatment at a tertiary facility. As such, he continued observation/symptomatic management and during followup he remained stable clinically. He continues to have somewhat limited activity tolerance, but overall his been doing remarkably well, thus far with no obvious progression of the astrocytoma. He will continue dexamethasone at 4 mg daily. I will see him again in 3 months. 2. He has type 2 diabetes, worsened due to his steroid requirement. Management has not been ideal due to compliance, but his hemoglobin A1c levels have fairly stable on Levemir. The dosage will be further adjusted as necessary. Signed By: Kevan Valles M.D. <<Signature on File>>
== END 2021-01-31 06:31 | disposition home or self-care (01) ==
LOC: ONCMED 06:33
PROVIDERS: Visit Provider Internal Medicine Medical Oncology
DX: C71.1 Malignant neoplasm of frontal lobe (principal); E11.9 Type 2 diabetes mellitus without complications; I10 Essential (primary) hypertension; E78.5 Hyperlipidemia, unspecified; E03.9 Hypothyroidism, unspecified; Z92.3 Personal history of irradiation; Z92.21 Personal history of antineoplastic chemotherapy; Z79.52 Long term (current) use of systemic steroids; Z79.4 Long term (current) use of insulin
CPT/HCPCS: 80053; 83036; 85025; 99214

== ENCOUNTER 2021-04-30 09:26 | Outpatient (CLI) | payer MEDICARE, SELFPAY ==
[2021-04-30 10:40] LABS: Basophils % 0.5 %; Eosinophils # 0.1 10^3/uL (0.0-0.8); Eosinophils % 1.7 %; Hematocrit 43.5 % (42.0-52.0); Hemoglobin 14.5 g/dL (11.7-16.6); Lymphocytes # 2.3 10^3/uL (0.8-4.8); Lymphocytes % 28.3 %; Mean Corpuscular HGB Conc 33.3 g/dL (30.0-36.0); Mean Corpuscular Hemoglobin 30.4 pg (28.0-34.0); Mean Corpuscular Volume 91.2 fL (80-94); Monocytes # 0.6 10^3/uL (0.2-0.9); Neutrophils # 5.03 10^3/uL (1.8-7.7); Neutrophils % 61.8 %; Nucleated Red Blood Cells % 0 %; Platelet Count 155 10^3/cmm (130-400); Red Blood Count 4.77 10^6/uL (4.1-5.3); Red Cell Distribution Width 12.8 % (12.1-15.1); White Blood Count 8.2 10^3/uL (4.0-10.0)
[2021-04-30 10:47] LABS: Estmated Average Glucose 197; Hemoglobin A1C 8.5 % (4.0-6.0)
[2021-04-30 10:56] LABS: Alanine Aminotransferase 21 U/L (0-41); Albumin Level 4.1 g/dL (3.5-5.2); Alkaline Phosphatase 87 IU/L (40-130); Anion Gap 16.8 (5-19); Aspartate Amino Transferase 22 U/L (0-40); Blood Urea Nitrogen 17 mg/dL (8-23); Calcium 8.6 mg/dL (8.5-10.5); Carbon Dioxide 24 mmol/L (22-29); Chloride 102 mmol/L (98-107); Globulin 2.8 g/dL (1.3-4.6); Glucose 245 mg/dL (65-115); Osmolality Calculated 298 mOsm/kg (285-295); Potassium 3.8 mmol/L (3.5-5.1); Sodium 139 mmol/L (136-145); Total Bilirubin 0.2 mg/dL (0.15-1.2); Total Protein 6.9 g/dL (6.6-8.7)
--- NOTE | 2021-05-01 06:42 | ONC FU_ITS ---
Dr. Valles Patient Follow-Up Note Patient: Andrae Montemayor Unit #: [id number]: 1945 Dicatated By: Kevan Valles M.D.Date of Visit:Apr 30, 2021 Onc Med Follow-up/Prog Note Chief Complaint: Grade III astrocytoma. 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 He was admitted to the hospital in July 2014 with an acute neurologic event, initially suspected to be a stroke. However, a noncontrast CT showed significant cerebral edema, and subsequent brain MRI showed a small enhancing lesion in the left superior frontal lobe subcortical white matter. It measured 7 mm x 10 mm x 6 mm, but it did have more extensive, ill defined cortical and subcortical edema and more diffuse intermediate increased T2 signal throughout the bilateral cerebral white matter, including involvement of the corpus colostrum body and medial cerebellum hemispheres. The appearance was consistent with tumoral extension or vasogenic edema. There was a 5 mm [id number] shift with diffuse cerebral sulci effacement. There was no associated infarction or hemorrhage. The appearance was suspicious for primary [employer] glioma or lymphoma. He underwent stereotactic brain biopsy on 08/17/14. Pathology was consistent with grade 3 astrocytoma. Patient and family had initially indicated that they were not interested in pursuing treatment, but he later was seen by Dr. Saenz, and he did opt to undergo treatment with radiation concurrently with temozolomide chemotherapy. Radiation was completed on 11/15/14 to a total dose of 4600 cGy. The temozolomide was stopped during the final week of treatment due to a drop in the platelet count. He otherwise tolerated the treatment very well. He had a restaging MRI in November 2014. It showed a significant decrease in the left superior frontal lobe enhancing lesions and the associated edema. There was also improvement in the left to right midline shift. There was still evidence of diffuse cerebral and cerebellar periventricular white matter high T2/FLAIR signal, possibly due to tumoral edema or chronic small ischemic changes. These appeared unchanged from the previous study. He then continued treatment with monthly cycles of temozolomide. As of May 2015 he had completed 6 cycles of treatment. He has since then been followed on observation. He was seen for a scheduled followup visit on 03/27/2016. At that time, his noted that he was getting more irritable and somewhat hyperactive. I was uncertain where those changes may have been related to dexamethasone as opposed to progression of the malignancy. He had repeat brain MRI on 04/18/2016. In compared to the previous study from May 2015 it did show slight enlargement of the left frontal lobe mass, measuring 12.2 mm x 13.0 mm x 9.2 mm compared to 7.2 mm x 6.6 mm x 9.8 mm in May 2015. There was evidence of decreased right temporal lobe white matter edema. Bilateral periventricular and bilateral frontal mike radiata and centrum semi-ovale white matter high T2/FLAIR signal abnormality appeared stable. He was not interested in pursuing options for further treatment at a tertiary facility. As such, I had recommended that he just continue on the dexamethasone 4 mg daily. His other medical illnesses include hypertension, hyperlipidemia, type 2 diabetes, and hypothyroidism. He had smoked in the past, but he quit more than 40 years ago. INTERIM HISTORY: He is seen for a scheduled visit. He has been feeling pretty good. He has pretty good energy and he is able to do light work. He does complain that if he sits too long he has a tendency to fall when he gets up. His ECOG score is 1. He has good appetite. He does not have fever or night sweats. He has noticed that his vision has been a little more blurry. He does not have sore throat or difficulty swallowing. He has just occasional cough. He does not complain of shortness of breath or chest pain. He has no GI complaints. Bladder function remains adequate. He has no significant joint or bone pain. He occasionally has headache when he first gets up in the morning. He has numbness/tingling in his feet. Medications: Dexamethasone 1 Tablet (of 4 mg) Oral at bedtime, GlipiZIDE 1 Tablet (of 10 mg) Oral b.i.d., Levemir 335 (100 Units/mL) Subcutaneous at bedtime, MetFORMIN HCl 1 Tablet (of 1000 mg) Oral b.i.d., Phenytoin Sodium Extended 3 Capsule (of 100 mg) Oral at bedtime Allergies: No Known Allergies. Vital Signs: Performed on Apr 30, 2021 14:36 Height - 68.00 in Weight - 195.2 lbs (LOW) BSA - 2.02 sq.m BMI - 29.68 Temperature - 97.5 F (LOW) Pulse - 18 /min (LOW) Respiration - 18 /min BP - 161/77 mm(hg) (HIGH) O2 Sat - 95 % (LOW) Pain - 0 Fatigue - 5 Physical Examination: Constitutional - He looks pretty good generally, Eyes - He has a prosthetic left eye. He is not icteric. Conjunctiva appears clear, ENMT - No lesions noted in the oral cavity, Hematologic/Lymphatic - No cervical, clavicular, or axillary adenopathy, Respiratory - Lungs sound clear with some decrease in air movement bilaterally, Cardiovascular - Heart rhythm is regular. There is no murmur, gallop, or rub noted, Abdomen - Mildly distended. Liver and spleen are not enlarged. There is no abdominal mass or ascites noted and there is no inguinal adenopathy, Extremities - No edema. There is extensive purpura on the forearms, Neurologic - There are no focal neurologic deficits noted. Lab/Imaging: Test performed on Apr 30, 2021 10:12 Sodium 139 mmol/L Potassium 3.8 mmol/L Chloride 102 mmol/L Est Avg Glucose (eAG) 197 mg/dL CO2 24 mmol/L Anion Gap 16.8 BUN 17 mg/dL Creatinine 0.9 mg/dL Cr Clearance (Est) 86.08 mL/min Glucose 245 mg/dL Osmolality - Calculated 298 mOsm/kg Calcium 8.6 mg/dL Protein, Total 6.9 g/dL Albumin 4.1 g/dL Globulin 2.8 g/dL Bilirubin, Total 0.2 mg/dL ALT (SGPT) 21 U/L AST (SGOT) 22 U/L Alkaline Phosphatase 87 IU/L Hemoglobin A1C % 8.5 % WBC 8.2 10 3/uL RBC 4.77 10 6/uL HGB 14.5 g/dL HCT 43.5 % MCV 91.2 fL MCH 30.4 pg MCHC 33.3 g/dL RDW 12.8 % Platelet Count 155 10 3/cmm MPV 11.0 fL Neutrophils 5.03 10 3/uL Lymphocytes 2.3 10 3/uL Monocytes 0.6 10 3/uL Eosinophils 0.1 10 3/uL Basophils 0.0 10 3/uL Neutrophil % 61.8 % Lymphocyte % 28.3 % Monocyte % 7.0 % Eosinophil % 1.7 % Basophils % 0.5 % NRBC % 0 % Problem List: 1. Grade III astrocytoma involving the left frontal lobe of the brain. The tumor appeared small by MRI, but the surrounding changes were much more extensive, and it was felt that his tumor was locally advanced. 2. Hypertension. 3. Hyperlipidemia. 4. Type II diabetes. 5. Hypothyroidism. Problems Addressed with this Encounter and Plan: 1. 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 The tumor appeared small by MRI, but the surrounding changes were much more extensive, and it was felt that his tumor was locally advanced. He underwent treatment with radiation concurrently with temozolomide chemotherapy. Radiation was completed on 11/15/14 to a total dose of 4600 cGy. Temozolomide was stopped during the final week of radiation due to a declining platelet count. He otherwise tolerated the treatment well. He had clinical improvement with the treatment, and restaging MRI in November 2014 showed evidence of some response. He then continued treatment with monthly cycles of temozolomide. As of May 2015 he had completed 6 cycles of treatment. He did show some decline in his platelet count during the last two cycles, but he tolerated the chemotherapy well otherwise. Repeat MRI on 06/23/2015 showed no evidence of disease progression. During followup he remained dependent on a low dosage of dexamethasone. Repeat brain MRI on 04/18/2016 showed slight enlargement of the left frontal lobe intra-axial mass, presumably indicative of disease progression. Other findings were improved or stable. He had indicated that he was not interested in pursuing further treatment at a tertiary facility. As such, he continued symptomatic management with dexamethasone and during followup he remained stable clinically. At this point he continues to have somewhat limited activity he does have some ongoing issues with balance/equilibrium. Overall, though, he has been doing well clinically with no obvious progression of the brain tumor. He continues dexamethasone 4 mg daily. He will be scheduled for a follow-up visit in 3 months. 2. He has type 2 diabetes which worsened due to his steroid requirement. Management has not been ideal due to compliance, but his hemoglobin A1c levels have fairly stable on Levemir. The dosage will now be increased to 40 units daily. He is to call if he has any low blood sugar readings. Signed By: Kevan Valles M.D. <<Signature on File>>
== END 2021-04-30 09:27 | disposition home or self-care (01) ==
LOC: ONCMED 09:30
PROVIDERS: Visit Provider Internal Medicine Medical Oncology
DX: C71.1 Malignant neoplasm of frontal lobe (principal); I10 Essential (primary) hypertension; E78.5 Hyperlipidemia, unspecified; E11.9 Type 2 diabetes mellitus without complications; E03.9 Hypothyroidism, unspecified; Z92.3 Personal history of irradiation; Z92.21 Personal history of antineoplastic chemotherapy; Z79.52 Long term (current) use of systemic steroids; Z79.899 Other long term (current) drug therapy
CPT/HCPCS: 36415; 80053; 83036; 85025; 99214

== ENCOUNTER 2021-07-31 11:50 | Outpatient (CLI) | payer MEDICARE, SELFPAY ==
[2021-07-31 12:38] LABS: Basophils % 0.3 %; Eosinophils # 0.1 10^3/uL (0.0-0.8); Eosinophils % 1.5 %; Hematocrit 39.3 % (42.0-52.0); Hemoglobin 13.1 g/dL (11.7-16.6); Lymphocytes # 1.8 10^3/uL (0.8-4.8); Lymphocytes % 20.6 %; Mean Corpuscular HGB Conc 33.3 g/dL (30.0-36.0); Mean Corpuscular Hemoglobin 31.2 pg (28.0-34.0); Mean Corpuscular Volume 93.6 fl (80-94); Mean Platelet Volume 11.2 fL (7.4-10.4); Monocytes # 0.6 10^3/uL (0.2-0.9); Monocytes % 7.3 %; Neutrophils % 68.9 %; Nucleated Red Blood Cells % 0 %; Platelet Count 201 10^3/cmm (130-400); Red Cell Distribution Width 12.8 % (12.1-15.1); White Blood Count 8.7 10^3/uL (4.0-10.0)
[2021-07-31 13:06] LABS: Alanine Aminotransferase 37 U/L (0-41); Albumin Level 3.6 g/dL (3.5-5.2); Alkaline Phosphatase 75 IU/L (40-130); Anion Gap 17.7 (5-19); Aspartate Amino Transferase 24 U/L (0-40); Blood Urea Nitrogen 14 mg/dL (8-23); Carbon Dioxide 23 mmol/L (22-29); Chloride 100 mmol/L (98-107); Globulin 3.1 g/dL (1.3-4.6); Glucose 281 mg/dL (65-115); Osmolality Calculated 295 mOsm/kg (285-295); Potassium 3.7 mmol/L (3.5-5.1); Sodium 137 mmol/L (136-145); Total Bilirubin 0.3 mg/dL (0.15-1.2); Total Protein 6.7 g/dL (6.6-8.7)
[2021-07-31 16:26] LABS: Estmated Average Glucose 203; Hemoglobin A1C 8.7 % (4.0-6.0)
--- NOTE | 2021-07-31 18:31 | ONC FU_ITS ---
Dr. Valles Patient Follow-Up Note Patient: Andrae Montemayor Unit #: [id number]: 1945 Dicatated By: Kevan Valles M.D.Date of Visit:Jul 31, 2021 Onc Med Follow-up/Prog Note Chief Complaint: Grade III astrocytoma. 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 He was admitted to the hospital in July 2014 with an acute neurologic event, initially suspected to be a stroke. However, a noncontrast CT showed significant cerebral edema, and subsequent brain MRI showed a small enhancing lesion in the left superior frontal lobe subcortical white matter. It measured 7 mm x 10 mm x 6 mm, but it did have more extensive, ill defined cortical and subcortical edema and more diffuse intermediate increased T2 signal throughout the bilateral cerebral white matter, including involvement of the corpus colostrum body and medial cerebellum hemispheres. The appearance was consistent with tumoral extension or vasogenic edema. There was a 5 mm [id number] shift with diffuse cerebral sulci effacement. There was no associated infarction or hemorrhage. The appearance was suspicious for primary [employer] glioma or lymphoma. He underwent stereotactic brain biopsy on 08/17/14. Pathology was consistent with grade 3 astrocytoma. Patient and family had initially indicated that they were not interested in pursuing treatment, but he later was seen by Dr. Saenz, and he did opt to undergo treatment with radiation concurrently with temozolomide chemotherapy. Radiation was completed on 11/15/14 to a total dose of 4600 cGy. The temozolomide was stopped during the final week of treatment due to a drop in the platelet count. He otherwise tolerated the treatment very well. He had a restaging MRI in November 2014. It showed a significant decrease in the left superior frontal lobe enhancing lesions and the associated edema. There was also improvement in the left to right midline shift. There was still evidence of diffuse cerebral and cerebellar periventricular white matter high T2/FLAIR signal, possibly due to tumoral edema or chronic small ischemic changes. These appeared unchanged from the previous study. He then continued treatment with monthly cycles of temozolomide. As of May 2015 he had completed 6 cycles of treatment. He has since then been followed on observation. He was seen for a scheduled followup visit on 03/27/2016. At that time, his noted that he was getting more irritable and somewhat hyperactive. I was uncertain where those changes may have been related to dexamethasone as opposed to progression of the malignancy. He had repeat brain MRI on 04/18/2016. In compared to the previous study from May 2015 it did show slight enlargement of the left frontal lobe mass, measuring 12.2 mm x 13.0 mm x 9.2 mm compared to 7.2 mm x 6.6 mm x 9.8 mm in May 2015. There was evidence of decreased right temporal lobe white matter edema. Bilateral periventricular and bilateral frontal mike radiata and centrum semi-ovale white matter high T2/FLAIR signal abnormality appeared stable. He was not interested in pursuing options for further treatment at a tertiary facility. As such, I had recommended that he just continue on the dexamethasone 4 mg daily. His other medical illnesses include hypertension, hyperlipidemia, type 2 diabetes, and hypothyroidism. He had smoked in the past, but he quit more than 40 years ago. INTERIM HISTORY: He is seen for a scheduled follow-up visit. Today he is accompanied by his son. He has not been doing his well lately, as he has been staggering a lot more and he has had some falls. According to his son, he also has been getting short of breath. He is still pretty active and does light work. ECOG score is 1. He has good appetite. He has no fever or night sweats. He has not had sore mouth or throat. He has only a little bit of cough. He does not complain of chest pain. He has not been having nausea. Recently has had diarrhea. He says his stools have looked black. He does not complain of abdominal pain. He says his bladder function is okay. His son says that he still loses bladder control. He does not complain of any joint or bone pain. He has only a little headache at times. He has no numbness/paresthesia or other focal neurologic symptoms. Medications: Dexamethasone 1 Tablet (of 4 mg) Oral at bedtime, GlipiZIDE 1 Tablet (of 10 mg) Oral b.i.d., Levemir 335 (100 Units/mL) Subcutaneous at bedtime, MetFORMIN HCl 1 Tablet (of 1000 mg) Oral b.i.d., Phenytoin Sodium Extended 3 Capsule (of 100 mg) Oral at bedtime Allergies: No Known Allergies. Vital Signs: Performed on Jul 31, 2021 14:50 Height - 68.00 in Weight - 191.4 lbs (LOW) BSA - 2.01 sq.m BMI - 29.10 Temperature - 99.0 F (HIGH) Pulse - 75 /min Respiration - 18 /min BP - 147/71 mm(hg) (HIGH) O2 Sat - 97 % Pain - 0 Fatigue - 5 Physical Examination: Constitutional - He looks pretty good generally, Eyes - He has a prosthetic left eye. He is not icteric. Conjunctiva appears clear, ENMT - No lesions noted in the oral cavity, Hematologic/Lymphatic - No cervical, clavicular, or axillary adenopathy, Respiratory - Lungs sound clear with some decrease in air movement bilaterally, Cardiovascular - Heart rhythm is regular. There is no murmur, gallop, or rub noted, Abdomen - Mildly distended. Liver and spleen are not enlarged. There is no abdominal mass or ascites noted and there is no inguinal adenopathy, Extremities - No edema. There is extensive purpura on the forearms, Neurologic - He has postural instability. There are no focal neurologic deficits noted. Lab/Imaging: Test performed on Jul 31, 2021 12:15 Sodium 137 mmol/L Potassium 3.7 mmol/L Chloride 100 mmol/L Est Avg Glucose (eAG) 203 mg/dL CO2 23 mmol/L Anion Gap 17.7 BUN 14 mg/dL Creatinine 0.9 mg/dL Cr Clearance (Est) 84.41 mL/min Glucose 281 mg/dL Osmolality - Calculated 295 mOsm/kg Calcium 9.0 mg/dL Protein, Total 6.7 g/dL Albumin 3.6 g/dL Globulin 3.1 g/dL Bilirubin, Total 0.3 mg/dL ALT (SGPT) 37 U/L AST (SGOT) 24 U/L Alkaline Phosphatase 75 IU/L Hemoglobin A1C % 8.7 % WBC 8.7 10 3/uL RBC 4.20 10 6/uL HGB 13.1 g/dL HCT 39.3 % MCV 93.6 fl MCH 31.2 pg MCHC 33.3 g/dL RDW 12.8 % Platelet Count 201 10 3/cmm MPV 11.2 fL Neutrophils 6.00 10 3/uL Lymphocytes 1.8 10 3/uL Monocytes 0.6 10 3/uL Eosinophils 0.1 10 3/uL Basophils 0.0 10 3/uL Neutrophil % 68.9 % Lymphocyte % 20.6 % Monocyte % 7.3 % Eosinophil % 1.5 % Basophils % 0.3 % NRBC % 0 % Problem List: 1. Grade III astrocytoma involving the left frontal lobe of the brain. The tumor appeared small by MRI, but the surrounding changes were much more extensive, and it was felt that his tumor was locally advanced. 2. Hypertension. 3. Hyperlipidemia. 4. Type II diabetes. 5. Hypothyroidism. Problems Addressed with this Encounter and Plan: 1. 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 The tumor appeared small by MRI, but the surrounding changes were much more extensive, and it was felt that his tumor was locally advanced. He underwent treatment with radiation concurrently with temozolomide chemotherapy. Radiation was completed on 11/15/14 to a total dose of 4600 cGy. Temozolomide was stopped during the final week of radiation due to a declining platelet count. He otherwise tolerated the treatment well. He had clinical improvement with the treatment, and restaging MRI in November 2014 showed evidence of some response. He then continued treatment with monthly cycles of temozolomide. As of May 2015 he had completed 6 cycles of treatment. He did show some decline in his platelet count during the last two cycles, but he tolerated the chemotherapy well otherwise. Repeat MRI on 06/23/2015 showed no evidence of disease progression. During followup he remained dependent on a low dosage of dexamethasone. Repeat brain MRI on 04/18/2016 showed slight enlargement of the left frontal lobe intra-axial mass, presumably indicative of disease progression. Other findings were improved or stable. He had indicated that he was not interested in pursuing further treatment at a tertiary facility. As such, he continued symptomatic management with dexamethasone and during followup he remained stable clinically. Since his last visit he has had some further decline in performance status, and he appears to be having significant issues with equilibrium. As such, he will be scheduled for repeat brain MRI. He will have further evaluation as indicated. In the meantime, he will continue his dexamethasone at 4 mg daily. 2. He has type 2 diabetes which worsened due to his steroid requirement. Management has not been ideal due to compliance. His A1c level remains somewhat elevated, but stable. He takes a blood sugar reading in the morning. He indicates he does not take his insulin if his reading is anywhere down close to 100. Due to his recent diarrhea, he is advised to stop the Metformin. He will continue Levemir at 40 units daily. If his blood sugar reading is less than 120, he can reduce the Levemir dosage to 20 units. If it is less than 80 he can hold it. Signed By: Kevan Valles M.D. <<Signature on File>>
== END 2021-07-31 11:51 | disposition home or self-care (01) ==
LOC: ONCMED 11:55
PROVIDERS: Visit Provider Internal Medicine Medical Oncology
DX: C71.1 Malignant neoplasm of frontal lobe (principal); E11.9 Type 2 diabetes mellitus without complications; Z79.4 Long term (current) use of insulin; Z79.52 Long term (current) use of systemic steroids; Z79.899 Other long term (current) drug therapy
CPT/HCPCS: 36415; 80053; 83036; 85025; 99214

== ENCOUNTER 2021-08-01 10:01 | Outpatient (CLI) | payer MEDICARE, SELFPAY ==
--- NOTE | 2021-08-01 10:07 | MR_ITS ---
WS: [id number] MRI HEAD WITH CONTRAST TECHNIQUE: Sagittal T1, T2 axial, T2 axial FLAIR, axial susceptibility weighted imaging, axial diffus ion weighted images, and coronal T2 images were obtained. Pre and post-T1 axial and post T1 coronal i mages. ADC and FSPGR images. CLINICAL INFORMATION: BRAIN TUMOR FOLLOWUP COMPARISON: Multiple prior MRIs the most recent March 2016 FINDINGS: No evidence of restricted diffusion to suggest acute ischemia. Ventricular system and basal cisterns are patent. Moderate periventricular and left frontal white matter changes compatible with small vess el changes and treatment-related effect. This is stable since 2016. Moderate parenchymal volume loss. Evidence of prior intraparenchymal tumor biopsy in the left posterior frontal lobe with associated he mosiderin. Encephalomalacia compatible with treatment-related changes in the left frontal lobe near t he vertex. No evidence of increasing edema or mass effect. No abnormal gadolinium enhancement to sravan issa progressive disease. Normal optic chiasm and pituitary infundibulum. Moderate symmetric atrophy temporal lobes and hippoca mpal formations. No abnormal gadolinium enhancement. Normal dural venous sinuses. MR/MR head wo/w con [id number] IMPRESSION: 1. No evidence of restricted diffusion to suggest acute ischemia. 2. No evidence of new or progressive disease in the left frontal lobe. Evidenc e of prior biopsy in the left posterior frontal lobe with hemosiderin. 3. Stable nonenhancing T2 signal abnormality in the left frontal lobe near the vertex with encephalomalacia compatible with treatment-related effect. 4. Stable periventricular white matter changes compatible with small vessel di sease and treatment-related changes 5. No abnormal gadolinium enhancement.
== END 2021-08-01 10:02 | disposition home or self-care (01) ==
PROVIDERS: Visit Provider Internal Medicine Medical Oncology
DX: C71.1 Malignant neoplasm of frontal lobe (principal)
CPT/HCPCS: 70553; A9577

== ENCOUNTER 2021-12-04 09:43 | Outpatient (CLI) | payer MEDICARE, SELFPAY ==
[2021-12-04 11:17] LABS: Basophils % 0.2 %; Eosinophils % 0.4 %; Hematocrit 42.2 % (42.0-52.0); Hemoglobin 14.1 g/dL (11.7-16.6); Lymphocytes # 1.8 10^3/uL (0.8-4.8); Lymphocytes % 20.4 %; Mean Corpuscular HGB Conc 33.4 g/dL (30.0-36.0); Mean Corpuscular Hemoglobin 30.8 pg (28.0-34.0); Mean Corpuscular Volume 92.1 fl (80-94); Mean Platelet Volume 10.4 fL (7.4-10.4); Monocytes # 0.5 10^3/uL (0.2-0.9); Monocytes % 6.1 %; Neutrophils # 6.41 10^3/uL (1.8-7.7); Neutrophils % 72.1 %; Nucleated Red Blood Cells % 0 %; Platelet Count 173 10^3/cmm (130-400); Red Blood Count 4.58 10^6/uL (4.1-5.3); Red Cell Distribution Width 13.4 % (12.1-15.1); White Blood Count 8.9 10^3/uL (4.0-10.0)
[2021-12-04 11:45] LABS: Alanine Aminotransferase 17 U/L (0-41); Albumin Level 4.1 g/dL (3.5-5.2); Alkaline Phosphatase 85 IU/L (40-130); Anion Gap 18.5 (5-19); Aspartate Amino Transferase 18 U/L (0-40); Blood Urea Nitrogen 16 mg/dL (8-23); Calcium 9.6 mg/dL (8.5-10.5); Carbon Dioxide 21 mmol/L (22-29); Chloride 104 mmol/L (98-107); Globulin 2.7 g/dL (1.3-4.6); Glucose 209 mg/dL (65-115); Osmolality Calculated 295 mOsm/kg (285-295); Potassium 4.5 mmol/L (3.5-5.1); Sodium 139 mmol/L (136-145); Total Bilirubin 0.2 mg/dL (0.15-1.2); Total Protein 6.8 g/dL (6.6-8.7)
--- NOTE | 2021-12-08 10:37 | ONC FU_ITS ---
Dr. Valles Patient Follow-Up Note Patient: Andrae Montemayor Unit #: [id number]: [id number] Dicatated By: Kevan Valles M.D.Date of Visit:Dec 04, 2021 Onc Med Follow-up/Prog Note Chief Complaint: Grade III astrocytoma. 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 He was admitted to the hospital in July 2014 with an acute neurologic event, initially suspected to be a stroke. However, a noncontrast CT showed significant cerebral edema, and subsequent brain MRI showed a small enhancing lesion in the left superior frontal lobe subcortical white matter. It measured 7 mm x 10 mm x 6 mm, but it did have more extensive, ill defined cortical and subcortical edema and more diffuse intermediate increased T2 signal throughout the bilateral cerebral white matter, including involvement of the corpus colostrum body and medial cerebellum hemispheres. The appearance was consistent with tumoral extension or vasogenic edema. There was a 5 mm [id number] shift with diffuse cerebral sulci effacement. There was no associated infarction or hemorrhage. The appearance was suspicious for primary [employer] glioma or lymphoma. He underwent stereotactic brain biopsy on 08/17/14. Pathology was consistent with grade 3 astrocytoma. Patient and family had initially indicated that they were not interested in pursuing treatment, but he later was seen by Dr. Saenz, and he did opt to undergo treatment with radiation concurrently with temozolomide chemotherapy. Radiation was completed on 11/15/14 to a total dose of 4600 cGy. The temozolomide was stopped during the final week of treatment due to a drop in the platelet count. He otherwise tolerated the treatment very well. He had a restaging MRI in November 2014. It showed a significant decrease in the left superior frontal lobe enhancing lesions and the associated edema. There was also improvement in the left to right midline shift. There was still evidence of diffuse cerebral and cerebellar periventricular white matter high T2/FLAIR signal, possibly due to tumoral edema or chronic small ischemic changes. These appeared unchanged from the previous study. He then continued treatment with monthly cycles of temozolomide. As of May 2015 he had completed 6 cycles of treatment. He has since then been followed on observation. He was seen for a scheduled followup visit on 03/27/2016. At that time, his noted that he was getting more irritable and somewhat hyperactive. I was uncertain where those changes may have been related to dexamethasone as opposed to progression of the malignancy. He had repeat brain MRI on 04/18/2016. In compared to the previous study from May 2015 it did show slight enlargement of the left frontal lobe mass, measuring 12.2 mm x 13.0 mm x 9.2 mm compared to 7.2 mm x 6.6 mm x 9.8 mm in May 2015. There was evidence of decreased right temporal lobe white matter edema. Bilateral periventricular and bilateral frontal mike radiata and centrum semi-ovale white matter high T2/FLAIR signal abnormality appeared stable. He was not interested in pursuing options for further treatment at a tertiary facility. As such, I had recommended that he just continue on the dexamethasone 4 mg daily. His other medical illnesses include hypertension, hyperlipidemia, type 2 diabetes, and hypothyroidism. He had smoked in the past, but he quit more than 40 years ago. INTERIM HISTORY: Repeat brain MRI on 08/01/2021 showed no evidence of new or progressive disease in the left frontal lobe. There was evidence for prior biopsy site in the left posterior frontal lobe with associated hemosiderin. There was nonenhancing T2 signal abnormality in the left frontal lobe near the vertex with encephalomalacia compatible with treatment related effect, appearance of which was stable. He is seen for a scheduled follow-up visit. He was not feeling very good recently, though he is really not able to be any more specific about it. He says he just felt bad generally, but he says he is getting better now. His activity is somewhat limited, but he is living independently and doing light work. ECOG score is 1. He has good appetite. He has no fever or night sweats. He complains that his lips have been dry. He has not had sore mouth or throat. He has a little bit of cough. He has not been having shortness of breath or chest pain. He has no GI complaints other than occasional belching. He has bladder incontinence. He is not complaining of joint or bone pain. He has some mild headaches and he sometimes has dizziness. He reports having some numbness/tingling in his feet. Medications: Dexamethasone 1 Tablet (of 4 mg) Oral at bedtime, GlipiZIDE 1 Tablet (of 10 mg) Oral b.i.d., Levemir 335 (100 Units/mL) Subcutaneous at bedtime, MetFORMIN HCl 1 Tablet (of 1000 mg) Oral b.i.d., Phenytoin Sodium Extended 3 Capsule (of 100 mg) Oral at bedtime Allergies: No Known Allergies. Vital Signs: Performed on Dec 04, 2021 13:19 Height - 68.00 in Weight - 193.4 lbs (HIGH) BSA - 2.01 sq.m BMI - 29.41 Temperature - 98.6 F Pulse - 84 /min Respiration - 19 /min BP - 158/70 mm(hg) (HIGH) O2 Sat - 94 % (LOW) Pain - 0 Fatigue - 4 Physical Examination: Constitutional - He looks pretty good generally, Eyes - He has a prosthetic left eye. He is not icteric. Conjunctiva appears clear, ENMT - No lesions noted in the oral cavity, Hematologic/Lymphatic - No cervical, clavicular, or axillary adenopathy, Respiratory - Lungs sound clear with some decrease in air movement bilaterally, Cardiovascular - Heart rhythm is regular. There is no murmur, gallop, or rub noted, Abdomen - Mildly distended. Liver and spleen are not enlarged. There is no abdominal mass or ascites noted and there is no inguinal adenopathy, Extremities - No edema, Neurologic - There are no focal neurologic deficits noted. Lab/Imaging: Test performed on Dec 04, 2021 11:05 Sodium 139 mmol/L Potassium 4.5 mmol/L Chloride 104 mmol/L CO2 21 mmol/L Anion Gap 18.5 BUN 16 mg/dL Creatinine 0.8 mg/dL Cr Clearance (Est) 95.95 mL/min Glucose 209 mg/dL Osmolality - Calculated 295 mOsm/kg Calcium 9.6 mg/dL Protein, Total 6.8 g/dL Albumin 4.1 g/dL Globulin 2.7 g/dL Bilirubin, Total 0.2 mg/dL ALT (SGPT) 17 U/L AST (SGOT) 18 U/L Alkaline Phosphatase 85 IU/L WBC 8.9 10 3/uL RBC 4.58 10 6/uL HGB 14.1 g/dL HCT 42.2 % MCV 92.1 fl MCH 30.8 pg MCHC 33.4 g/dL RDW 13.4 % Platelet Count 173 10 3/cmm MPV 10.4 fL Neutrophils 6.41 10 3/uL Lymphocytes 1.8 10 3/uL Monocytes 0.5 10 3/uL Eosinophils 0.0 10 3/uL Basophils 0.0 10 3/uL Neutrophil % 72.1 % Lymphocyte % 20.4 % Monocyte % 6.1 % Eosinophil % 0.4 % Basophils % 0.2 % NRBC % 0 % Problem List: 1. Grade III astrocytoma involving the left frontal lobe of the brain. The tumor appeared small by MRI, but the surrounding changes were much more extensive, and it was felt that his tumor was locally advanced. 2. Hypertension. 3. Hyperlipidemia. 4. Type II diabetes. 5. Hypothyroidism. Problems Addressed with this Encounter and Plan: 1. 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 The tumor appeared small by MRI, but the surrounding changes were much more extensive, and it was felt that his tumor was locally advanced. He underwent treatment with radiation concurrently with temozolomide chemotherapy. Radiation was completed on 11/15/14 to a total dose of 4600 cGy. Temozolomide was stopped during the final week of radiation due to a declining platelet count. He otherwise tolerated the treatment well. He had clinical improvement with the treatment, and restaging MRI in November 2014 showed evidence of some response. He then continued treatment with monthly cycles of temozolomide. As of May 2015 he had completed 6 cycles of treatment. He did show some decline in his platelet count during the last two cycles, but he tolerated the chemotherapy well otherwise. Repeat MRI on 06/23/2015 showed no evidence of disease progression. During followup he remained dependent on a low dosage of dexamethasone. Repeat brain MRI on 04/18/2016 showed slight enlargement of the left frontal lobe intra-axial mass, presumably indicative of disease progression. Other findings were improved or stable. He had indicated that he was not interested in pursuing further treatment at a tertiary facility. As such, he continued symptomatic management with dexamethasone and during followup he remained stable clinically. As of his follow-up visit in July 2021 his dysequilibrium appear to be getting worse, and he appeared to be showing some decline in performance status. However, there was no evidence of disease progression on his repeat brain MRI. He continued treatment with dexamethasone 4 mg daily. Since then he has remained stable clinically, and he will continue his same treatment. He will be scheduled for a follow-up visit in 3 months. 2. He has type 2 diabetes which worsened due to his steroid requirement. Management has not been ideal due to compliance. He continues Levemir at 40 units daily. Signed By: Kevan Valles M.D. <<Signature on File>>
== END 2021-12-04 09:44 | disposition home or self-care (01) ==
PROVIDERS: Visit Provider Internal Medicine Medical Oncology
DX: C71.1 Malignant neoplasm of frontal lobe (principal); I10 Essential (primary) hypertension; E78.5 Hyperlipidemia, unspecified; E11.9 Type 2 diabetes mellitus without complications; E03.9 Hypothyroidism, unspecified; Z79.899 Other long term (current) drug therapy; Z87.891 Personal history of nicotine dependence
CPT/HCPCS: 36415; 80053; 85025; 99214

== ENCOUNTER 2022-03-07 09:37 | Outpatient (CLI) | payer MEDICARE, SELFPAY ==
[2022-03-07 10:29] LABS: Basophils % 0.4 %; Eosinophils # 0.2 10^3/uL (0.0-0.8); Eosinophils % 2.8 %; Hematocrit 42.4 % (42.0-52.0); Hemoglobin 13.9 g/dL (11.7-16.6); Lymphocytes # 1.7 10^3/uL (0.8-4.8); Lymphocytes % 23.2 %; Mean Corpuscular HGB Conc 32.8 g/dL (30.0-36.0); Mean Corpuscular Hemoglobin 30.5 pg (28.0-34.0); Mean Platelet Volume 10.9 fL (7.4-10.4); Monocytes # 0.7 10^3/uL (0.2-0.9); Monocytes % 10.2 %; Neutrophils # 4.51 10^3/uL (1.8-7.7); Neutrophils % 62.7 %; Nucleated Red Blood Cells % 0 %; Platelet Count 159 10^3/cmm (130-400); Red Blood Count 4.56 10^6/uL (4.1-5.3); Red Cell Distribution Width 12.8 % (12.1-15.1); White Blood Count 7.2 10^3/uL (4.0-10.0)
[2022-03-07 11:03] LABS: Alanine Aminotransferase 19 U/L (0-41); Albumin Level 4.2 g/dL (3.5-5.2); Alkaline Phosphatase 71 IU/L (40-130); Anion Gap 13.4 (5-19); Aspartate Amino Transferase 15 U/L (0-40); Blood Urea Nitrogen 23 mg/dL (8-23); Calcium 9.3 mg/dL (8.5-10.5); Carbon Dioxide 25 mmol/L (22-29); Chloride 105 mmol/L (98-107); Glucose 115 mg/dL (65-115); Osmolality Calculated 293 mOsm/kg (285-295); Potassium 4.4 mmol/L (3.5-5.1); Sodium 139 mmol/L (136-145); Total Bilirubin 0.3 mg/dL (0.15-1.2); Total Protein 7.2 g/dL (6.6-8.7)
[2022-03-07 11:04] LABS: Estmated Average Glucose 194; Hemoglobin A1C 8.4 % (4.0-6.0)
--- NOTE | 2022-03-14 11:38 | ONC FU_ITS ---
Myranda Monique Progress Note Patient: Andrae Montemayor Unit #: [id number]: 1945 Dicatated By: Myranda Monique N.P.Date of Visit:Mar 07, 2022 Onc MED Follow-up/Prog Note Chief Complaint: Grade III astrocytoma. 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 He was admitted to the hospital in July 2014 with an acute neurologic event, initially suspected to be a stroke. However, a noncontrast CT showed significant cerebral edema, and subsequent brain MRI showed a small enhancing lesion in the left superior frontal lobe subcortical white matter. It measured 7 mm x 10 mm x 6 mm, but it did have more extensive, ill defined cortical and subcortical edema and more diffuse intermediate increased T2 signal throughout the bilateral cerebral white matter, including involvement of the corpus colostrum body and medial cerebellum hemispheres. The appearance was consistent with tumoral extension or vasogenic edema. There was a 5 mm [id number]-[id number] shift with diffuse cerebral sulci effacement. There was no associated infarction or hemorrhage. The appearance was suspicious for primary [employer] glioma or lymphoma. He underwent stereotactic brain biopsy on 08/17/14. Pathology was consistent with grade 3 astrocytoma. Patient and family had initially indicated that they were not interested in pursuing treatment, but he later was seen by Dr. Saenz, and he did opt to undergo treatment with radiation concurrently with temozolomide chemotherapy. Radiation was completed on 11/15/14 to a total dose of 4600 cGy. The temozolomide was stopped during the final week of treatment due to a drop in the platelet count. He otherwise tolerated the treatment very well. He had a restaging MRI in November 2014. It showed a significant decrease in the left superior frontal lobe enhancing lesions and the associated edema. There was also improvement in the left to right midline shift. There was still evidence of diffuse cerebral and cerebellar periventricular white matter high T2/FLAIR signal, possibly due to tumoral edema or chronic small ischemic changes. These appeared unchanged from the previous study. He then continued treatment with monthly cycles of temozolomide. As of May 2015 he had completed 6 cycles of treatment. He has since then been followed on observation. He was seen for a scheduled followup visit on 03/27/2016. At that time, his noted that he was getting more irritable and somewhat hyperactive. I was uncertain where those changes may have been related to dexamethasone as opposed to progression of the malignancy. He had repeat brain MRI on 04/18/2016. In compared to the previous study from May 2015 it did show slight enlargement of the left frontal lobe mass, measuring 12.2 mm x 13.0 mm x 9.2 mm compared to 7.2 mm x 6.6 mm x 9.8 mm in May 2015. There was evidence of decreased right temporal lobe white matter edema. Bilateral periventricular and bilateral frontal mike radiata and centrum semi-ovale white matter high T2/FLAIR signal abnormality appeared stable. He was not interested in pursuing options for further treatment at a tertiary facility. As such, I had recommended that he just continue on the dexamethasone 4 mg daily. His other medical illnesses include hypertension, hyperlipidemia, type 2 diabetes, and hypothyroidism. He had smoked in the past, but he quit more than 40 years ago. INTERIM HISTORY: Repeat brain MRI on 08/01/2021 showed no evidence of new or progressive disease in the left frontal lobe. There was evidence for prior biopsy site in the left posterior frontal lobe with associated hemosiderin. There was nonenhancing T2 signal abnormality in the left frontal lobe near the vertex with encephalomalacia compatible with treatment related effect, appearance of which was stable. Patient presents today for follow-up visit. He is complaining of increased fatigue and weakness. He does not currently have a walker but feels like he may benefit from one. He states he cannot ambulate very far before his legs give out and he has to just sit down to keep from falling down. He also has some increased dizziness and he feels like his weakness and dizziness are getting worse. Denies shortness of breath, cough, chest pain. No nausea or vomiting. No bowel problems. He has urinary incontinence. No joint or bone pain. Review Of Symptoms:Review of Systems is not available for this patient. 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 Medications: Dexamethasone 1 Tablet (of 4 mg) Oral at bedtime GlipiZIDE 1 Tablet (of 10 mg) Oral b.i.d. Levemir 335 (100 Units/mL) Subcutaneous at bedtime MetFORMIN HCl 1 Tablet (of 1000 mg) Oral b.i.d. Phenytoin Sodium Extended 3 Capsule (of 100 mg) Oral at bedtime Family History: Mr. Montemayor's mother is : stroke. Mr. Montemayor's father is : heart attack. Father of heart attack and mother of stroke. A brother and sister of cancer. Social History: Mr. Montemayor is and he is retired. Mr. Montemayor quit smoking 47 years ago but had smoked for 24 years. He has no history of drinking. Mr. Montemayor reports the following support systems: lives in own house, supportive family/friends willing to assist with needs, and adequate transportation available for expected visits. His diet consists of regular meals. He indicates his activity level as: daily activities. He had smoked in the past, but quit more than 40 years ago. He does not drink alcohol. pt has no plans to restart smoking. tr. Physical Examination: Vitals are not available for this patient. Performance Status: 2 - Ambulatory/capable of all self-care, unable to perform any work activities. Up and about more than 50% of waking hours. (ECOG) Constitutional Alert, cooperative, oriented. Mood and affect appropriate. Appears close to chronological age. Well nourished. Well developed. Head Normocephalic; no scars. Eyes Conjunctivae and sclerae are clear and without icterus. Blind left eye Respiratory Lungs are clear to auscultation without rhonchi or wheezing. Cardiovascular Regular rate and rhythm of heart without murmurs, gallops or rubs. Abdomen Non-tender, non-distended, no masses, ascites or hepatosplenomegaly. Good bowel sounds. No guarding or rebound tenderness. Musculoskeletal Generalized weakness Psychiatric Alert and oriented times three. Coherent speech. Verbalizes understanding of our discussions today. Laboratory: Test performed on Mar 07, 2022 10:20 Sodium 139 mmol/L Potassium 4.4 mmol/L Chloride 105 mmol/L Est Avg Glucose (eAG) 194 mg/dL CO2 25 mmol/L Anion Gap 13.4 BUN 23 mg/dL Creatinine 0.9 mg/dL Cr Clearance (Est) 85.2900 mL/min Glucose 115 mg/dL Osmolality - Calculated 293 mOsm/kg Calcium 9.3 mg/dL Protein, Total 7.2 g/dL Albumin 4.2 g/dL Globulin 3.0 g/dL Bilirubin, Total 0.3 mg/dL ALT (SGPT) 19 U/L AST (SGOT) 15 U/L Alkaline Phosphatase 71 IU/L Hemoglobin A1C % 8.4 % WBC 7.2 10 3/uL RBC 4.56 10 6/uL HGB 13.9 g/dL HCT 42.4 % MCV 93.0 fl MCH 30.5 pg MCHC 32.8 g/dL RDW 12.8 % Platelet Count 159 10 3/cmm MPV 10.9 fL Neutrophils 4.51 10 3/uL Lymphocytes 1.7 10 3/uL Monocytes 0.7 10 3/uL Eosinophils 0.2 10 3/uL Basophils 0.0 10 3/uL Neutrophil % 62.7 % Lymphocyte % 23.2 % Monocyte % 10.2 % Eosinophil % 2.8 % Basophils % 0.4 % NRBC % 0 % Impression: 1. Grade III astrocytoma involving the left frontal lobe of the brain. The tumor appeared small by MRI, but the surrounding changes were much more extensive, and it was felt that his tumor was locally advanced. 2. Hypertension. 3. Hyperlipidemia. 4. Type II diabetes. 5. Hypothyroidism. Plan: 1. 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 The tumor appeared small by MRI, but the surrounding changes were much more extensive, and it was felt that his tumor was locally advanced. He underwent treatment with radiation concurrently with temozolomide chemotherapy. Radiation was completed on 11/15/14 to a total dose of 4600 cGy. Temozolomide was stopped during the final week of radiation due to a declining platelet count. He otherwise tolerated the treatment well. He had clinical improvement with the treatment, and restaging MRI in November 2014 showed evidence of some response. He then continued treatment with monthly cycles of temozolomide. As of May 2015 he had completed 6 cycles of treatment. He did show some decline in his platelet count during the last two cycles, but he tolerated the chemotherapy well otherwise. Repeat MRI on 06/23/2015 showed no evidence of disease progression. During followup he remained dependent on a low dosage of dexamethasone. Repeat brain MRI on 04/18/2016 showed slight enlargement of the left frontal lobe intra-axial mass, presumably indicative of disease progression. Other findings were improved or stable. He had indicated that he was not interested in pursuing further treatment at a tertiary facility. As such, he continued symptomatic management with dexamethasone and during followup he remained stable clinically. As of his follow-up visit in July 2021 his dysequilibrium appear to be getting worse, and he appeared to be showing some decline in performance status. However, there was no evidence of disease progression on his repeat brain MRI. He continued treatment with dexamethasone 4 mg daily. Patient presents today for follow-up. He states his dizziness and weakness in his legs are getting worse. He is afraid that he is going to fall. It was recommended that a seated walker may help him to remain ambulatory and prevent any future falls. We will order him a seated walker. Due to his increased weakness and his dizziness we will order an MRI of the head to follow-up on brain tumor. He will continue the dexamethasone 4 mg daily if MRI is clear we will have him follow-up in 3 months with a CBC and a CMP. 2. He has type 2 diabetes which worsened due to his steroid requirement. His hemoglobin A1c has improved slightly down to 8.4 from 8.7. He continues Levemir at 40 units daily. Signed By: Myranda Monique N.P. <<Signature on File>>
== END 2022-03-07 09:38 | disposition home or self-care (01) ==
PROVIDERS: Visit Provider Nurse Practitioner Family
DX: C71.1 Malignant neoplasm of frontal lobe (principal); Z92.3 Personal history of irradiation; Z79.52 Long term (current) use of systemic steroids; R42 Dizziness and giddiness; M62.81 Muscle weakness (generalized); E11.9 Type 2 diabetes mellitus without complications; Z79.4 Long term (current) use of insulin
CPT/HCPCS: 36415; 80053; 83036; 85025; 99214

== ENCOUNTER 2022-04-01 07:47 | Outpatient (CLI) | payer MEDICARE, SELFPAY ==
--- NOTE | 2022-04-01 07:59 | MR_ITS ---
WS: [id number] MRI HEAD WITH CONTRAST TECHNIQUE: Sagittal T1, T2 axial, T2 axial FLAIR, axial susceptibility weighted imaging, axial diffus ion weighted images, and coronal T2 images were obtained. Pre and post-T1 axial and post T1 coronal i mages. ADC and FSPGR images. CLINICAL INFORMATION: ASTROCYTOMA-EVAL NEW SYMPTOMS COMPARISON: MRI August 01, 2021, [id number] FINDINGS: 9 mm focus of restricted diffusion in the RIGHT cerebellum consistent with a small acute lacunar infa rct. No abnormal gadolinium enhancement in this area. No other foci of restricted diffusion. Ventricular system and basal cisterns are patent. Evidence of prior intraparenchymal biopsy LEFT post erior frontal lobe with associated hemosiderin. Stable encephalomalacia compatible with treatment-rel ated changes in the LEFT frontal lobe extending to the vertex. No evidence of increasing edema or mas s effect. No abnormal gadolinium enhancement. No evidence of disease progression. Normal optic chiasm and pituitary infundibulum. Moderate symmetric atrophy temporal lobes and hippoca mpal formations. No abnormal gadolinium enhancement. Normal dural venous sinuses. Prior postoperative changes LEFT orbit. Moderate small vessel changes. Moderate parenchymal volume loss. Chronic lacunar infarct RIGHT caudate. Mild mucosal thickening in the paranasal sinuses. Mastoid air cells well aera rubin. MR/MR head wo/w con [id number] IMPRESSION: 1. 9 mm focus of restricted diffusion and RIGHT cerebellum consistent with a t iny acute lacunar infarct. 2. No other foci of acute ischemia. 3. No other significant changes compared to previous. 4. No evidence of new or progressive disease in the left frontal lobe. 5. Evidence of prior biopsy in the left posterior frontal lobe with hemosideri n. 6. Stable nonenhancing T2 signal abnormality in the left frontal lobe near the vertex with encephalomalacia compatible with treatment-related effect. 7. No abnormal gadolinium enhancement.
[2022-04-01] MEDS: gadobenate dimeglumine 20 mL vial IV (09:45)
== END 2022-04-01 07:48 | disposition home or self-care (01) ==
PROVIDERS: Visit Provider Nurse Practitioner Family
DX: C71.1 Malignant neoplasm of frontal lobe (principal); E11.9 Type 2 diabetes mellitus without complications
CPT/HCPCS: 70553

== ENCOUNTER 2022-04-01 10:00 | Emergency (ER) | payer MEDICARE, SELFPAY ==
[2022-04-01 11:05] VITALS: BP 123/65; PULSE 70; RESP 18; TEMP 36.8; O2SAT 94; BMI 28.8
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
--- NOTE | 2022-04-01 11:45 | ECG_ITS ---
[facility] Test Date: 2022-04-01 Pat Name: Andrae Montemayor Department: Room: Gender: Male Testing Lead: : 1945 Requested By: [place] Order Number: [id number] Anthony MD: Mike Garay M.D. Measurements Intervals [place] Rate: 66 P: 57 [place]: 224 QRS: -48 QRSD: 96 T: 87 QT: 398 QTc: 418 Interpretive Statements SINUS RHYTHM WITH FIRST DEGREE AV BLOCK LEFT AXIS DEVIATION [QRS AXIS < -30] POSSIBLE RIGHT VENTRICULAR CONDUCTION DELAY [RSR (QR) IN V1/V2] Compared to ECG 10/10/2016 12:34:15 First degree AV block now present Left-axis deviation now present Incomplete right bundle-branch block no longer present Left anterior fascicular block no longer present Electronically Signed On 04-01-2022 21:41:20 CDT by Mike Garay M.D. [id number]
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
[2022-04-01] MEDS: iohexol 300 mg/mL 100 mL Btl IV (12:15)
[2022-04-01 13:10] LABS: Basophils % 0.2 %; Eosinophils # 0.1 10^3/uL (0.0-0.8); Eosinophils % 0.4 %; Hematocrit 41.3 % (42.0-52.0); Hemoglobin 13.7 g/dL (11.7-16.6); Lymphocytes # 1.4 10^3/uL (0.8-4.8); Lymphocytes % 12.5 %; Mean Corpuscular HGB Conc 33.2 g/dL (30.0-36.0); Mean Corpuscular Hemoglobin 30.6 pg (28.0-34.0); Mean Corpuscular Volume 92.2 fl (80-94); Mean Platelet Volume 10.4 fL (7.4-10.4); Monocytes # 0.9 10^3/uL (0.2-0.9); Monocytes % 7.8 %; Neutrophils # 8.79 10^3/uL (1.8-7.7); Neutrophils % 78.2 %; Nucleated Red Blood Cells % 0 %; Platelet Count 146 10^3/cmm (130-400); Red Blood Count 4.48 10^6/uL (4.1-5.3); White Blood Count 11.3 10^3/uL (4.0-10.0)
[2022-04-01 13:30] VITALS: BP 160/62; PULSE 74; RESP 16; O2SAT 95
[2022-04-01 13:31] LABS: Alanine Aminotransferase 24 U/L (0-41); Albumin Level 4.3 g/dL (3.5-5.2); Alkaline Phosphatase 74 IU/L (40-130); Aspartate Amino Transferase 22 U/L (0-40); Blood Urea Nitrogen 18 mg/dL (8-23); Calcium 9.2 mg/dL (8.5-10.5); Carbon Dioxide 26 mmol/L (22-29); Chloride 100 mmol/L (98-107); Globulin 2.2 g/dL (1.3-4.6); Glucose 187 mg/dL (65-115); Osmolality Calculated 293 mOsm/kg (285-295); Sodium 138 mmol/L (136-145); Total Bilirubin 0.3 mg/dL (0.15-1.2); Total Protein 6.5 g/dL (6.6-8.7)
[2022-04-01 14:54] VITALS: BP 160/62; PULSE 74; RESP 16; O2SAT 95
== END 2022-04-01 14:55 ==
PROVIDERS: Physician Assistant; Emergency Provider Family Medicine
DX: S12.601A Unspecified nondisplaced fracture of seventh cervical vertebra, initial encounter for closed fracture (principal); S22.020A Wedge compression fracture of second thoracic vertebra, initial encounter for closed fracture; S32.010A Wedge compression fracture of first lumbar vertebra, initial encounter for closed fracture; V47.0XXA Car driver injured in collision with fixed or stationary object in nontraffic accident, initial encounter; C71.1 Malignant neoplasm of frontal lobe
CPT/HCPCS: 70450; 71260; 72125; 72128; 72131; 73502; 74177; 80053; 85025; 93005; 99284; Q9967